=== PATIENT | female | born 1945 | race Caucasian/White ===

== ENCOUNTER → 2017-11-10 | Day surgery (SDC) | payer OTHER, BC ==
--- NOTE | 2017-11-11 10:59 | PATH ---
Surgical Pathology Report Patient Name: PRADEEP MARIN [facility]. Rec. #: [id number] /Age/Gender: 1945 (Age: 72) / F Account: [id number] Location: [facility] Taken: 11/10/2017 Received: 11/10/2017 Reported: 11/11/2017 Physicians: Ashely Moran M.D. Specimen(s) Received RIGHT BREAST CORE BIOPSY Clinical History Nonpalpable lesion Ultrasound findings: Highly suspicious/ malignant Retroareolar spiculated mass Final Diagnosis BREAST, RIGHT, SUB/RETRO, ULTRASOUND GUIDED CORE BIOPSY: INVASIVE DUCTAL CARCINOMA, MODERATELY DIFFERENTIATED, MEASURING ATLEAST 1.1 CM IN THIS MATERIAL. Comment: Breast prognostic markers are pending and will be signed out as an addendum. Electronically Signed Maria De Jesus Crenshaw M.D. Addendum Reported: 11/14/2017 Addendum Diagnosis Results of Estrogen Receptor (ER), Progesterone Receptor (WY), Her2 (IHC) & Ki-67 studies performed on block "1" at [facility] [place], [place] ([id number]) are as follows: ER (clone [id number] mouse monoclonal antibody by [employer]): 99% nuclear staining with strong intensity (Positive). WY (clone16 mouse monoclonal antibody by Leica): ~45% nuclear staining with weak to moderate intensity (Positive). Her2 IHC (EP3 from [employer], formerly known as [id number], using [employer] Polymer Refine detection kit): 2+ (Equivocal) Ki-67: ~20% (Intermediate proliferative Index) Her2 by FISH pending and will be reported separately. Positive and negative controls (internal if applicable) show appropriate results. Formalin fixation and cold ischemic times are within current ASCO/CAP recommendations for ER, WY and Her2 testing. Maria De Jesus Crenshaw M.D. Addendum Reported: 11/18/2017 Addendum Diagnosis Her2 Analysis by FISH performed and interpreted at [facility] ([id number]) shows the following: INTERPRETATION: Positive Her2: 8.4 CEP17: 1.9 Ratio: 4.4 See [facility]ge report for additional details ([id number]) Maria De Jesus Crenshaw M.D. Gross Description Received in formalin labeled "right sub-/retro," are 5 coello-yellow, cylindrical portions of fibroadipose tissue ranging from 0.6-1.3 cm in length and averaging 0.1 cm in diameter. The specimens are submitted in toto in one cassette. Total formalin fixation time: Between 6-10 hours 11/10/201711/10/2017
== END | disposition home or self-care (01) ==
LOC: JRADUS-SUR 07:59
PROVIDERS: ATTEND Surgery
PROC: 0HBT3ZX Excision of Right Breast, Percutaneous Approach, Diagnostic (ICD-10-PCS; principal; 2017-11-10)
DX: C50.911 Malignant neoplasm of unspecified site of right female breast (principal)
CPT/HCPCS: 19083; 77065-TC; 87899; 88305-TC; A4648

== ENCOUNTER 2017-12-27 09:30 | Day surgery (SDC) | payer OTHER, BC ==
--- NOTE | 2017-12-21 09:44 | HP ---
Admitting History and Physical - Primary Care Physician PCP: Horacio Bloom - Admission Chief Complaint: Right breast cancer History of Present Illness: 72 year old postmenapausal who had a CT showing lung nodules. Mammogram 2017 showed stable calcifications and left density. Pet CT 08/2017 showed suspicious findings in rectum and right middle lobe for which short term follow up was advised.Also noted was a right breast mass 18/13mm and 3.6 x2.9 cm mass in pelvis. She underwent pelvic mass excision which was benign 11/10/2017 She underwent US core biopsy right breast retroareolar region 1.5 cm. MRI breast left breast negative. right breast newly diagnosed right breast cancer and suspicious enhancement right 9 to 10:00. birad 4. . She is here for port placement. showing invasive ductal carcinoma History Source: Patient Limitations to Obtaining History: No Limitations - Past Medical History Cardiovascular: Yes: HTN, Hyperlipdemia Pulmonary: Yes: Asthma, Other (lung nodules followed by CT) - Past Surgical History Past Surgical History: Yes: Hysterectomy (benign CAMERON at 42 and complete 2018 benign), Joint Replacement (bilateral knee replacement left shattered with pins CTS), Tubal Ligation - Advance Directives Advance Directives: Yes: Health Care Proxy - Smoking History Smoking history: Former smoker Have you smoked in the past 12 months: No Aproximately how many cigarettes per day: 2 If you are a former smoker, when did you quit?: 30 Years ago - Alcohol/Substance Use Hx Alcohol Use: Yes (SOCIALLY) - Social History ADL: Independent History of Recent Travel: No Home Medications - Allergies Allergies/Adverse Reactions: Allergies Allergy/AdvReac Type Severity Reaction Status Date / Time erythromycin base Allergy Intermediate Difficulty Verified 11/04/15 08:41 Breathing - Home Medications Home Medications: Ambulatory Orders Paroxetine HCl [Paxil -] 10 mg PO DAILY 01/27/15 Cetirizine HCl [Zyrtec -] 10 mg PO DAILY 11/04/15 Glucosamine Sulfate Dipot Chlr [Glucosamine] 1,000 mg PO DAILY 11/04/15 Rosuvastatin Calcium [Crestor] 20 mg PO HS 11/04/15 Spironolact/Hydrochlorothiazid [Aldactazide 25-25 Tablet] 1 tab PO HS 11/04/15 Cholecalciferol (Vitamin D3) [Vitamin D3] 4,000 iu PO DAILY 12/20/17 Family Disease History - Family Disease History Family History: Denies Physical Examination Constitutional: Yes: Well Nourished Breast(s): Yes: Other (Left breast negative, right breast retroareolar region 3 cm firm mass and post bx changes no adenopathy) Problem List - Problems (1) Breast cancer, right Code(s): C50.911 - MALIGNANT NEOPLASM OF UNSP SITE OF RIGHT FEMALE BREAST Qualifiers: Breast location: combined nipple and areola Patient sex: female Assessment/Plan Life port insertion for chemotherapy
[2017-12-27] MEDS ORDERED: HEPARIN NA (PORCINE) 5,000 UNITS/ML 1ML VIAL ONE (10:05)
[2017-12-27] MEDS ORDERED: LIDOCAINE HCL 1%, 10 MG/ML (20ML VIAL) ONE (10:05)
[2017-12-27 10:24] VITALS: BMI 28.8
[2017-12-27] MEDS ORDERED: MIDAZOLAM HCL 2 MG/2 ML SINGLE DOSE VIAL ONE (11:43)
[2017-12-27] MEDS ORDERED: SUCCINYLCHOLINE CHLORIDE 200 MG/10 ML VIAL ONE (11:50)
[2017-12-27] MEDS ORDERED: PROPOFOL 20 ML ONE ×2 (11:50→12:34)
[2017-12-27] MEDS ORDERED: DEXAMETHASONE SOD PHOSPHATE 4 MG/1 ML VIAL ONE (11:55)
[2017-12-27] MEDS ORDERED: ONDANSETRON 4 MG/2 ML VIAL ONE (11:55)
[2017-12-27] MEDS ORDERED: ceFAZolin SODIUM 1 GM VIAL ONE (11:55)
[2017-12-27] MEDS ORDERED: ONDANSETRON 4 MG/2 ML VIAL IVPUSH PRN (12:51)
[2017-12-27] MEDS ORDERED: KETOROLAC TROMETHAMINE 30 MG/1 ML VIAL IVPUSH PRN (12:51)
[2017-12-27] MEDS ORDERED: DEXTROSE 5%-0.45% SALINE 1,000 ML IV SCH (13:00)
--- NOTE | 2017-12-27 14:05 | OP ---
DATE OF OPERATION: 12/27/2017 PREOPERATIVE DIAGNOSIS: Right breast cancer. POSTOPERATIVE DIAGNOSIS: Right breast cancer. PROCEDURE: Left subclavian single-lumen LifePort insertion. ANESTHESIA: IV sedation with local. ATTENDING: Horacio Bloom MD CANNERY TENDER ENGINEER: TRISTIAN Bell ESTIMATED BLOOD LOSS: Minimal. COMPLICATIONS: None. PROCEDURE: The patient was made aware of the risks and benefits of the procedure and consented. She was placed in the supine position on the operating room table and after IV sedation was administered, the operative site was prepped and draped in the usual sterile fashion. Lidocaine 1% was used for local anesthesia. Using the Seldinger technique, the left subclavian vein was easily localized and a wire was passed into the superior vena cava and found to be in good position by intraoperative fluoroscopy. Incisions were made over the puncture site and an additional larger incision was made inferior lateral to this area. Using electrocautery, an skin pocket was made in the larger incision. The catheter was then tunneled from the larger incision to the smaller incision and fashioned to the proper length, which was then attached to the port head. The port head was then placed into the skin pocket. The introducer and dilator were then placed over the wire into good position by intraoperative fluoroscopy. The dilator and wire were then removed and the catheter was placed into the introducer, which was then stripped away. The catheter was found to be in good position by intraoperative fluoroscopy. There was easy withdrawal of blood and infusion of dilute heparinized saline. Then 1 mL of concentrated heparinized saline was infused into the port head. The port head was then sutured to the deep tissues with 2-0 Prolene. The wound was copiously irrigated with normal saline, hemostasis maintained by electrocautery. The skin was then closed with deep 3-0 Vicryl followed by running subcuticular 4-0 Monocryl. Steri-Strip, sterile dressing were then applied and the patient, having tolerated the procedure well, was transferred to the recovery room and then her room, where a chest x-ray revealed good positioning of the catheter and no evidence of complications. Ashely [id number]
[2017-12-27 14:09] VITALS: BP 119/67; PULSE 59; TEMP 97.9
== END 2017-12-27 14:11 | disposition home or self-care (01) ==
LOC: FASU 09:30
PROVIDERS: ATTEND Surgery Surgical Oncology
PROC: B518ZZA Fluoroscopy of Superior Vena Cava, Guidance (ICD-10-PCS; 2017-12-27)
PROC: 02HV33Z Insertion of Infusion Device into Superior Vena Cava, Percutaneous Approach (ICD-10-PCS; principal; 2017-12-27 12:09)
DX: C50.911 Malignant neoplasm of unspecified site of right female breast (principal); I10 Essential (primary) hypertension; E78.5 Hyperlipidemia, unspecified; J45.909 Unspecified asthma, uncomplicated; R91.1 Solitary pulmonary nodule; Z90.710 Acquired absence of both cervix and uterus; Z96.653 Presence of artificial knee joint, bilateral
CPT/HCPCS: 71045-TC-FY; J1644

== ENCOUNTER 2017-12-29 12:11 | Day surgery (SDC) | payer OTHER, BC ==
[2017-12-29 12:06] LABS: BASO % 0.7 % (0-2.0); EOS % 3.1 % (0-4.5); HEMATOCRIT 46.1 % (32.4-45.2); HEMOGLOBIN 15.3 GM/dL (10.7-15.3); LYMPH % 41.4 % (8-40); MCH 28.2 pg (25.7-33.7); MCHC 33.3 g/dl (32.0-36.0); MEAN CELL VOLUME 84.8 fl (80-96); MEAN PLT VOLUME 8.6 fl (7.5-11.1); MONO % 7.5 % (3.8-10.2); NEUT % 47.3 % (42.8-82.8); PLATELET COUNT 220 K/MM3 (134-434); RBC 5.43 M/mm3 (3.60-5.2); RDW 13.9 % (11.6-15.6); WHITE BLOOD COUNT 8.4 K/mm3 (4.0-10.0)
[~2017-12-29 12:11] MED LIST: ACETAMINOPHEN 325 MG TABLET (FP) PO ONE; DEXTROSE 5%-0.45% SALINE 1,000 ML IV SCH; DIPHENHYDRAMINE IVPB ONE; KETOROLAC TROMETHAMINE 30 MG/1 ML VIAL IVPUSH PRN; ONDANSETRON 4 MG/2 ML VIAL IVPUSH PRN; ONDANSETRON IVPB ONE; PERTUZUMAB 840 MG in SODIUM CHLORIDE 250 ML IVPB ONE; RANITIDINE IVPB ONE; SODIUM CHLORIDE IVPB ONE; TRASTUZUMAB IVPB ONE; [UNRECOGNIZED DRUG - OTHER] IVPB ONE
[2017-12-29] MEDS ORDERED: PACLITAXEL 150 MG in SODIUM CHLORIDE 250 ML IVPB ONE (13:00)
[2017-12-29 13:06] LABS: ALK PHOS 63 U/L (45-117); ANION GAP 8 (8-16); BILIRUBIN,TOTAL 0.6 mg/dL (0.2-1.0); BLOOD UREA NITROGEN 24 mg/dL (7-18); CALCIUM 9.4 mg/dL (8.5-10.1); CHLORIDE 103 mmol/L (98-107); CO2 29 mmol/L (21-32); CREATININE 0.8 mg/dL (0.55-1.02); GLUCOSE,RANDOM 119 mg/dL (74-106); MAGNESIUM 2.1 mg/dL (1.8-2.4); POTASSIUM 3.8 mmol/L (3.5-5.1); SGOT/AST 14 U/L (15-37); SGPT/ALT 28 U/L (12-78); SODIUM 140 mmol/L (136-145); TOT PROT 7.5 g/dl (6.4-8.2)
[2017-12-29 13:33] LABS: BILIRUBIN,DIRECT 0.2 mg/dL (0.0-0.2)
[2017-12-29] MEDS ORDERED: BACITRACIN 15 GM TUBE TOPICAL OINTMENT TP ONE (15:00)
[2017-12-29] MEDS ORDERED: SODIUM CHLORIDE 250 ML IV SCH (15:00)
[2017-12-29] MEDS ORDERED: DEXAMETHASONE SOD PHOSPHATE 20 MG/5 ML VIAL IVPB ONE (15:00)
[2017-12-29] MEDS ORDERED: DEXAMETHASONE SOD PHOSPHATE 10 MG/1 ML VIAL ONE (17:00)
[2017-12-29] MEDS ORDERED: PORTA CATH FLUSH 10 ML IVPUSH ONE (18:00)
[2017-12-29 19:24] VITALS: BP 118/66; PULSE 73; TEMP 98.3
== END 2017-12-29 19:28 | disposition home or self-care (01) ==
LOC: J7W 12:11 → JONCCHEMO 12:11
PROVIDERS: ATTEND Internal Medicine Hematology & Oncology
DX: Z51.11 Encounter for antineoplastic chemotherapy (principal); C50.919 Malignant neoplasm of unspecified site of unspecified female breast
CPT/HCPCS: 36415; 80048; 80076; 83735; 85025; 96361; 96367; 96375; 96413; 96415; 96417; J1100; J7030; J9306; J9355

== ENCOUNTER 2018-01-09 07:47 | Day surgery (SDC) | payer OTHER, BC ==
[2018-01-09] MEDS ORDERED: RANITIDINE IVPB ONE (10:00)
[2018-01-09] MEDS ORDERED: [UNRECOGNIZED DRUG - OTHER] IVPB ONE (10:00)
[2018-01-09] MEDS ORDERED: DEXAMETHASONE IVPB ONE (10:00)
[2018-01-09] MEDS ORDERED: ONDANSETRON IVPB ONE (10:00)
[2018-01-09] MEDS ORDERED: PACLITAXEL 150 MG in SODIUM CHLORIDE 250 ML IVPB ONE (10:30)
[2018-01-09 12:53] LABS: BASO % 0.8 % (0-2.0); EOS % 1.6 % (0-4.5); HEMATOCRIT 43.2 % (32.4-45.2); HEMOGLOBIN 14.5 GM/dL (10.7-15.3); LYMPH % 31.3 % (8-40); MCH 28.2 pg (25.7-33.7); MCHC 33.5 g/dl (32.0-36.0); MEAN CELL VOLUME 84.2 fl (80-96); MEAN PLT VOLUME 8.1 fl (7.5-11.1); MONO % 7.7 % (3.8-10.2); NEUT % 58.6 % (42.8-82.8); PLATELET COUNT 288 K/MM3 (134-434); RBC 5.13 M/mm3 (3.60-5.2); RDW 14.1 % (11.6-15.6); WHITE BLOOD COUNT 5.5 K/mm3 (4.0-10.0)
[2018-01-09 13:24] LABS: ALBUMIN 3.8 g/dl (3.4-5.0); ANION GAP 6 (8-16); BILIRUBIN,DIRECT < 0.2 mg/dL (0.0-0.2); BILIRUBIN,TOTAL 0.5 mg/dL (0.2-1.0); BLOOD UREA NITROGEN 18 mg/dL (7-18); CALCIUM 9.2 mg/dL (8.5-10.1); CHLORIDE 107 mmol/L (98-107); CO2 28 mmol/L (21-32); CREATININE 0.8 mg/dL (0.55-1.02); GLUCOSE,RANDOM 93 mg/dL (74-106); POTASSIUM 4.3 mmol/L (3.5-5.1); SGOT/AST 14 U/L (15-37); SGPT/ALT 24 U/L (12-78); SODIUM 141 mmol/L (136-145); TOT PROT 6.9 g/dl (6.4-8.2)
[2018-01-09 13:25] LABS: ALK PHOS 65 U/L (45-117)
[2018-01-09 16:22] VITALS: TEMP 97.9
[2018-01-09] MEDS ORDERED: PORTA CATH FLUSH 10 ML IVPUSH ONE (16:25)
[2018-01-09 18:05] VITALS: BP 123/70; PULSE 67
== END 2018-01-09 18:19 | disposition home or self-care (01) ==
LOC: JONCCHEMO 07:47 → J7W 13:29 → JONCCHEMO 18:19
PROVIDERS: ATTEND Internal Medicine Hematology & Oncology
DX: Z51.11 Encounter for antineoplastic chemotherapy (principal); C50.919 Malignant neoplasm of unspecified site of unspecified female breast
CPT/HCPCS: 36415; 36598; 76000-TC-FY; 80053; 80076; 85025; 96367; 96375; 96413; J1100

== ENCOUNTER 2018-01-17 07:39 | Day surgery (SDC) | payer OTHER, BC ==
[2018-01-17] MEDS ORDERED: SODIUM CHLORIDE 1,000 ML IV SCH ×2 (09:00→14:05)
[2018-01-17] MEDS ORDERED: DEXAMETHASONE IVPB ONE (10:00)
[2018-01-17] MEDS ORDERED: RANITIDINE IVPB ONE (10:00)
[2018-01-17] MEDS ORDERED: [UNRECOGNIZED DRUG - OTHER] IVPB ONE (10:00)
[2018-01-17] MEDS ORDERED: ONDANSETRON IVPB ONE (10:00)
[2018-01-17] MEDS ORDERED: PACLITAXEL 150 MG in SODIUM CHLORIDE 250 ML IVPB ONE (10:30)
[2018-01-17 11:35] LABS: BASO % 0.7 % (0-2.0); EOS % 0.8 % (0-4.5); HEMATOCRIT 42.3 % (32.4-45.2); HEMOGLOBIN 14.1 GM/dL (10.7-15.3); LYMPH % 36.9 % (8-40); MCH 28.2 pg (25.7-33.7); MCHC 33.4 g/dl (32.0-36.0); MEAN CELL VOLUME 84.4 fl (80-96); MEAN PLT VOLUME 8.2 fl (7.5-11.1); MONO % 4.9 % (3.8-10.2); NEUT % 56.7 % (42.8-82.8); PLATELET COUNT 310 K/MM3 (134-434); RBC 5.01 M/mm3 (3.60-5.2); WHITE BLOOD COUNT 5.1 K/mm3 (4.0-10.0)
[2018-01-17 11:59] LABS: ALBUMIN 3.6 g/dl (3.4-5.0); ANION GAP 8 (8-16); BILIRUBIN,DIRECT < 0.2 mg/dL (0.0-0.2); BLOOD UREA NITROGEN 18 mg/dL (7-18); CALCIUM 9.3 mg/dL (8.5-10.1); CHLORIDE 104 mmol/L (98-107); CO2 27 mmol/L (21-32); CREATININE 0.7 mg/dL (0.55-1.02); GLUCOSE,RANDOM 100 mg/dL (74-106); MAGNESIUM 2.2 mg/dL (1.8-2.4); POTASSIUM 4.4 mmol/L (3.5-5.1); SGOT/AST 13 U/L (15-37); SGPT/ALT 26 U/L (12-78); SODIUM 139 mmol/L (136-145)
[2018-01-17 12:01] LABS: ALK PHOS 64 U/L (45-117); BILIRUBIN,TOTAL 0.4 mg/dL (0.2-1.0); TOT PROT 6.8 g/dl (6.4-8.2)
[2018-01-17] MEDS ORDERED: ALTEPLASE 2 MG VIAL CVP ONE (13:45)
[2018-01-17] MEDS ORDERED: SODIUM CHLORIDE 250 ML IV SCH ×2 (14:05→14:31)
[2018-01-17 18:26] VITALS: TEMP 98.4
[2018-01-17 18:30] VITALS: BP 127/67; PULSE 56
[2018-01-17] MEDS ORDERED: PORTA CATH FLUSH 10 ML IVPUSH ONE (18:30)
== END 2018-01-17 18:34 | disposition home or self-care (01) ==
LOC: JONCCHEMO 07:39 → J7W 12:52 → JONCCHEMO 18:00
PROVIDERS: ATTEND Internal Medicine Hematology & Oncology
DX: Z51.11 Encounter for antineoplastic chemotherapy (principal); C50.919 Malignant neoplasm of unspecified site of unspecified female breast
CPT/HCPCS: 36415; 80053; 80076; 83735; 85025; 96361; 96367; 96375; 96413; J1100; J2997; J7030

== ENCOUNTER 2018-02-07 07:31 | Day surgery (SDC) | payer OTHER, BC ==
--- NOTE | 2018-01-24 10:40 | CON.CARD ---
Consult Consult Specialty:: Cardiology Referred by:: Dr. Hoang Reason for Consultation:: Syncope - History of Present Illness Chief Complaint: Syncope History of Present Illness: 72 year old woman with pmh HTN, hysterectomy, tubal ligation, h/o hypotension episodes and syncope in the past in the setting of medications and nausea, Breast Ca currently receiving chemo, admitted with a syncopal episode and abdominal discomfort. Pt was seen and examined today in [facility]. Pt ambulatory around room to and from bathroom without symptoms. states she is feeling better and wants to go home. Pt states that the day after receiving her last chemo she was feeling very tired and weak. she states she got up from bed to go to the bathroom and felt diaphoretic and felt like she was going to lose consciousness so she sat down on the floor and she did lose consciousness. states she woke up soon after and felt better but still weak and tired and she went to lay down. She also notes abdominal discomfort for the past several days. In the past had episodes of syncope in the setting of nausea and abd discomfort. Denies any chest pain, palpitations, sob, pnd, orthopnea, or LE edema. States she drinks several large bottles of water per day to stay hydrated. ECHO 12/09/17-Normal LV/RV size and function, LV impaired relaxation, mild tr, mild ar, no pericardial effusion, mild to mod aortic sclerosis. - History Source History Provided By: Patient Limitations to Obtaining History: No Limitations - Past Medical History Cardio/Vascular: Yes: HTN Pulmonary: Yes: Asthma, Other (lung nodules followed by CT) Heme/Onc: Yes: Cancer - Past Surgical History Past Surgical History: Yes: Hysterectomy, Tubal Ligation - Alcohol/Substance Use Hx Alcohol Use: Yes (SOCIALLY) - Smoking History Smoking history: Former smoker Have you smoked in the past 12 months: No Aproximately how many cigarettes per day: 2 If you are a former smoker, when did you quit?: 30 Years ago - Social History ADL: Independent History of Recent Travel: No Home Medications - Allergies Allergies/Adverse Reactions: Allergies Allergy/AdvReac Type Severity Reaction Status Date / Time erythromycin base Allergy Intermediate Difficulty Verified 01/23/18 11:01 Breathing - Home Medications Home Medications: Ambulatory Orders Paroxetine HCl [Paxil -] 10 mg PO DAILY 01/27/15 Cetirizine HCl [Zyrtec -] 10 mg PO DAILY 11/04/15 Glucosamine Sulfate Dipot Chlr [Glucosamine] 1,000 mg PO DAILY 11/04/15 Rosuvastatin Calcium [Crestor] 20 mg PO HS 11/04/15 Spironolact/Hydrochlorothiazid [Aldactazide 25-25 Tablet] 1 tab PO HS 11/04/15 Cholecalciferol (Vitamin D3) [Vitamin D3] 4,000 iu PO DAILY 12/20/17 Acetaminophen [Tylenol] 325 mg PO TID PRN #30 tablet 12/27/17 Acetaminophen [Tylenol] 650 mg PO TID PRN #30 tablet 12/27/17 Fluticasone/Salmeterol [Advair 250-50 Diskus] 1 each IH DAILY PRN 12/27/17 Family Disease History - Family Disease History Family History: Denies Review of Systems - Review of Systems Constitutional: reports: Diaphoresis, Malaise, Weakness. denies: No Symptoms, Chills, Fever, Lethargy, Loss of Appetite, Night Sweats, Unintentional Wgt. Loss , Other Eyes: denies: No Symptoms, Blind Spots, Blurred Vision, Double Vision, Eye Pain , Floaters, Photophobia, Recent Change in Vision, Other HENT: denies: No Symptoms, Difficult Swallowing, Ear Discharge, Ear Pain, Epistaxis, Gingival Bleeding, Hearing Loss, Mouth Swelling, Nasal Congestion, Ocular Prosthesis, Throat Pain, Toothache, Ringing in Ears, Other Neck: denies: No Symptoms, Decreased ROM, Lumps, Pain on Movement, Stiffness, Swollen Glands, Tenderness, Other Cardiovascular: denies: No Symptoms, Chest Pain, Edema, Palpitations, Shortness of Breath, Other Respiratory: denies: No Symptoms, Cough, Exercise Intolerance, Hemoptysis, Orthopnea, PND, Snoring, SOB, SOB on Exertion, Wheezing, Other Gastrointestinal: reports: Abdominal Pain, Bloating, Nausea. denies: No Symptoms, Constipation, Diarrhea, Dysphagia, Indigestion, Melena, Rectal Bleeding, Vomiting, Vomiting Blood, Other Genitourinary: denies: No Symptoms, Burning, Discharge, Dysuria, Flank Pain, Frequency, Hematuria, Incontinence, Lesions, Menses, Pain, Testicular Mass, Testicular Pain, Testicular Swelling, Urgency, Vaginal Bleeding, Other Breasts: denies: No Symptoms Reported, See HPI, Breast Implants, Discharge from Nipple, Lumps, Pain, Skin Changes, Other Musculoskeletal: denies: No Symptoms, Back Pain, Crepitus, Decreased ROM, Extremity Pain, Joint Pain, Joint Swelling, Muscle Pain, Muscle Cramps, Muscle Weakness, Other Integumentary: denies: No Symptoms, Blister, Bruising, Change in Color, Eczema, Erythema, Incision, Lesions, Lump, Pallor, Pruritis, Rash, Wound, Other Neurological: reports: Dizziness, Syncope. denies: No Symptoms, Change in LOC, Change in Speech, Confusion, Headache, Incoordination, Numbness, Parasthesia, Pre-Existing Deficit, Seizure, Tremors, Unsteady Gait, Weakness, Other Endocrine: denies: No Symptoms, Excessive Sweating, Flushing, Increased Hunger, Increased Thirst, Intolerance to Cold, Intolerance to Heat, Unexplained Weight Gain, Unexplained Weight Loss, Other Hematology/Lymphatic: denies: No Symptoms, Easily Bruised, Excessive Bleeding, Swollen Glands, Other Psychiatric: denies: No Symptoms, Altered Sleep Pattern, Anxiety, Depression, Hallucinations, Panic, Paranoia, Suicidal, Other - Risk Factors Known Risk Factors: Yes: Hypertension Constitutional: Yes: Well Nourished, No Distress, Calm Eyes: Yes: WNL, Conjunctiva Clear, EOM Intact HENT: Yes: WNL, Atraumatic, Normocephalic Neck: Yes: WNL, Supple, Trachea Midline Respiratory: Yes: WNL, Regular, CTA Bilaterally. No: Rales, Rhonchi, SOB, Wheezes Gastrointestinal: Yes: Normal Bowel Sounds, Tenderness. No: Distention Cardiovascular: Yes: WNL, Regular Rate and Rhythm. No: Bradycardia, Tachycardia , Pulse Irregular, Gallop, Rub, Varicosities JVD: No Carotid Bruit: No PMI: Non-Displaced Heart Sounds: Yes: S1, S2. No: Split S2, S3, S4, Clicks, Gallop, Rub, Bruit Murmur: No: Systolic Murmur, Diastolic Murmur Musculoskeletal: Yes: WNL Extremities: Yes: WNL Edema: No Peripheral Pulses WNL: Yes Peripheral Pulses: 2+ Left Doralis Pedis, 2+ Right Dorsalis Pedis Integumentary: Yes: WNL Neurological: Yes: WNL, Alert, Oriented ...Motor Strength: WNL Psychiatric: Yes: WNL, Alert, Oriented Assessment/Plan 72 year old woman with pmh HTN, hysterectomy, tubal ligation, h/o hypotension episodes and syncope in the past in the setting of medications and nausea, Breast Ca currently receiving chemo, admitted with a syncopal episode and abdominal discomfort. Pt was seen and examined today in [facility]. Pt ambulatory around room to and from bathroom without symptoms. states she is feeling better and wants to go home. Pt states that the day after receiving her last chemo she was feeling very tired and weak. she states she got up from bed to go to the bathroom and felt diaphoretic and felt like she was going to lose consciousness so she sat down on the floor and she did lose consciousness. states she woke up soon after and felt better but still weak and tired and she went to lay down. She also notes abdominal discomfort for the past several days. In the past had episodes of syncope in the setting of nausea and abd discomfort. Denies any chest pain, palpitations, sob, pnd, orthopnea, or LE edema. States she drinks several large bottles of water per day to stay hydrated. ECHO 12/09/17-Normal LV/RV size and function, LV impaired relaxation, mild tr, mild ar, no pericardial effusion, mild to mod aortic sclerosis.
[~2018-02-07 07:31] MED LIST changes: +DEXAMETHASONE IVPB ONE; -DEXTROSE 5%-0.45% SALINE 1,000 ML IV SCH; -KETOROLAC TROMETHAMINE 30 MG/1 ML VIAL IVPUSH PRN; -ONDANSETRON 4 MG/2 ML VIAL IVPUSH PRN; +PACLITAXEL 150 MG in SODIUM CHLORIDE 250 ML IVPB ONE; +PERTUZUMAB 420 MG in SODIUM CHLORIDE 250 ML IVPB ONE; -PERTUZUMAB 840 MG in SODIUM CHLORIDE 250 ML IVPB ONE; -RANITIDINE IVPB ONE; +[UNRECOGNIZED DRUG - OTHER] IVPB ONE; -[UNRECOGNIZED DRUG - OTHER] IVPB ONE
[2018-02-07] MEDS ORDERED: ACETAMINOPHEN 325 MG TABLET (FP) PO ONE (08:00)
[2018-02-07] MEDS ORDERED: [UNRECOGNIZED DRUG - OTHER] IVPB ONE (08:00)
[2018-02-07] MEDS ORDERED: DIPHENHYDRAMINE IVPB ONE (08:00)
[2018-02-07] MEDS ORDERED: DEXAMETHASONE IVPB ONE (08:00)
[2018-02-07] MEDS ORDERED: ONDANSETRON IVPB ONE (08:00)
[2018-02-07] MEDS ORDERED: SODIUM CHLORIDE IVPB ONE (08:30)
[2018-02-07] MEDS ORDERED: TRASTUZUMAB IVPB ONE (08:30)
[2018-02-07] MEDS ORDERED: PACLITAXEL 150 MG in SODIUM CHLORIDE 250 ML IVPB ONE (09:00)
[2018-02-07 10:52] LABS: BASO % 0.8 % (0-2.0); EOS % 1.3 % (0-4.5); HEMATOCRIT 39.2 % (32.4-45.2); HEMOGLOBIN 13.1 GM/dL (10.7-15.3); MCH 28.1 pg (25.7-33.7); MCHC 33.3 g/dl (32.0-36.0); MEAN CELL VOLUME 84.4 fl (80-96); MEAN PLT VOLUME 8.4 fl (7.5-11.1); MONO % 6.8 % (3.8-10.2); NEUT % 60.1 % (42.8-82.8); PLATELET COUNT 264 K/MM3 (134-434); RBC 4.64 M/mm3 (3.60-5.2); RDW 14.5 % (11.6-15.6); WHITE BLOOD COUNT 6.6 K/mm3 (4.0-10.0)
[2018-02-07 11:17] LABS: ALBUMIN 3.7 g/dl (3.4-5.0); ANION GAP 7 (8-16); BILIRUBIN,DIRECT 0.2 mg/dL (0.0-0.2); BLOOD UREA NITROGEN 15 mg/dL (7-18); CALCIUM 9.5 mg/dL (8.5-10.1); CHLORIDE 109 mmol/L (98-107); CO2 27 mmol/L (21-32); CREATININE 0.8 mg/dL (0.55-1.02); GLUCOSE,RANDOM 105 mg/dL (74-106); POTASSIUM 4.2 mmol/L (3.5-5.1); SGOT/AST 11 U/L (15-37); SGPT/ALT 22 U/L (12-78); SODIUM 143 mmol/L (136-145)
[2018-02-07 11:18] LABS: ALK PHOS 71 U/L (45-117); BILIRUBIN,TOTAL 0.6 mg/dL (0.2-1.0); TOT PROT 6.5 g/dl (6.4-8.2)
[2018-02-07] MEDS ORDERED: SODIUM CHLORIDE 250 ML IV SCH (12:15)
[2018-02-07 16:37] VITALS: TEMP 97.7
[2018-02-07 16:42] VITALS: BP 140/68; PULSE 61
== END 2018-02-07 16:00 | disposition home or self-care (01) ==
LOC: JONCCHEMO 07:31 → J7W 12:30 → JONCCHEMO 16:00
PROVIDERS: ATTEND Internal Medicine Hematology & Oncology
DX: Z51.11 Encounter for antineoplastic chemotherapy (principal); C50.919 Malignant neoplasm of unspecified site of unspecified female breast
CPT/HCPCS: 36415; 80053; 80076; 85025; 96361; 96367; 96375; 96413; 96417; J1100; J2405; J7030; J9355

== ENCOUNTER 2018-03-07 07:39 | Day surgery (SDC) | payer OTHER, BC ==
[2018-03-07 09:51] LABS: BASO % 0.9 % (0-2.0); EOS % 1.3 % (0-4.5); HEMATOCRIT 34.7 % (32.4-45.2); HEMOGLOBIN 11.6 GM/dL (10.7-15.3); MCH 28.3 pg (25.7-33.7); MCHC 33.5 g/dl (32.0-36.0); MEAN CELL VOLUME 84.5 fl (80-96); MONO % 4.3 % (3.8-10.2); NEUT % 59.5 % (42.8-82.8); PLATELET COUNT 317 K/MM3 (134-434); RBC 4.11 M/mm3 (3.60-5.2); RDW 14.9 % (11.6-15.6); WHITE BLOOD COUNT 4.2 K/mm3 (4.0-10.0)
[2018-03-07] MEDS ORDERED: DEXAMETHASONE INJECTION 10 MG, DIPHENHYDRAMINE 50 MG, RANITIDINE INJECTION 50 MG in SOD... IVPB ONE (10:00)
[2018-03-07] MEDS ORDERED: SODIUM CHLORIDE 500 ML IV ONE (10:00)
[2018-03-07 10:13] LABS: ALBUMIN 3.6 g/dl (3.4-5.0); ANION GAP 9 (8-16); BILIRUBIN,DIRECT < 0.2 mg/dL (0.0-0.2); BILIRUBIN,TOTAL 0.6 mg/dL (0.2-1.0); BLOOD UREA NITROGEN 16 mg/dL (7-18); CALCIUM 8.8 mg/dL (8.5-10.1); CHLORIDE 111 mmol/L (98-107); CO2 24 mmol/L (21-32); CREATININE 0.6 mg/dL (0.55-1.02); GLUCOSE,RANDOM 111 mg/dL (74-106); MAGNESIUM 1.9 mg/dL (1.8-2.4); POTASSIUM 3.8 mmol/L (3.5-5.1); SGOT/AST 35 U/L (15-37); SGPT/ALT 78 U/L (12-78); SODIUM 144 mmol/L (136-145); TOT PROT 6.5 g/dl (6.4-8.2)
[2018-03-07 10:14] LABS: ALK PHOS 72 U/L (45-117)
[2018-03-07] MEDS ORDERED: PACLITAXEL 150 MG in SODIUM CHLORIDE 250 ML IVPB ONE (10:30)
[2018-03-07] MEDS ORDERED: DEXAMETHASONE SOD PHOSPHATE 10 MG/1 ML VIAL IVPB ONE (10:59)
[2018-03-07] MEDS ORDERED: ONDANSETRON 4 MG/2 ML VIAL IVPB ONE (11:28)
[2018-03-07 18:37] VITALS: TEMP 99
[2018-03-07] MEDS ORDERED: PORTA CATH FLUSH 10 ML IVPUSH ONE (18:44)
[2018-03-07 18:45] VITALS: BP 133/70; PULSE 92
== END 2018-03-07 15:35 | disposition home or self-care (01) ==
LOC: JONCCHEMO 07:39 → J7W 11:15 → JONCCHEMO 15:35
PROVIDERS: ATTEND Internal Medicine Hematology & Oncology
PROC: 3E04305 Introduction of Other Antineoplastic into Central Vein, Percutaneous Approach (ICD-10-PCS; principal; 2018-03-07)
PROC: 3E043GC Introduction of Other Therapeutic Substance into Central Vein, Percutaneous Approach (ICD-10-PCS; 2018-03-07)
PROC: 3E0437Z Introduction of Electrolytic and Water Balance Substance into Central Vein, Percutaneous Approach (ICD-10-PCS; 2018-03-07)
DX: Z51.11 Encounter for antineoplastic chemotherapy (principal); C50.019 Malignant neoplasm of nipple and areola, unspecified female breast; I10 Essential (primary) hypertension; E78.00 Pure hypercholesterolemia, unspecified; F41.9 Anxiety disorder, unspecified; J45.909 Unspecified asthma, uncomplicated; M19.90 Unspecified osteoarthritis, unspecified site; R91.8 Other nonspecific abnormal finding of lung field
CPT/HCPCS: 36415; 80048; 80076; 83735; 85025; 96361; 96367; 96375; 96413; J1100

== ENCOUNTER 2018-03-14 07:45 | Day surgery (SDC) | payer OTHER, BC ==
[2018-03-14] MEDS ORDERED: DEXAMETHASONE INJECTION 10 MG, RANITIDINE INJECTION 50 MG, DIPHENHYDRAMINE 50 MG in SOD... IVPB ONE (10:00)
[2018-03-14] MEDS ORDERED: SODIUM CHLORIDE 500 ML IV ONE (10:00)
[2018-03-14 10:36] LABS: BASO % 0.7 % (0-2.0); EOS % 1.1 % (0-4.5); HEMATOCRIT 34.2 % (32.4-45.2); HEMOGLOBIN 11.6 GM/dL (10.7-15.3); LYMPH % 38.4 % (8-40); MCH 29.1 pg (25.7-33.7); MEAN CELL VOLUME 85.6 fl (80-96); MEAN PLT VOLUME 7.9 fl (7.5-11.1); MONO % 4.8 % (3.8-10.2); PLATELET COUNT 360 K/MM3 (134-434); RBC 3.99 M/mm3 (3.60-5.2); RDW 15.8 % (11.6-15.6)
[2018-03-14 11:02] LABS: ALBUMIN 3.7 g/dl (3.4-5.0); ANION GAP 6 MMOL/L (8-16); BILIRUBIN,DIRECT < 0.2 mg/dL (0.0-0.2); BLOOD UREA NITROGEN 16 mg/dL (7-18); CHLORIDE 107 mmol/L (98-107); CO2 28 mmol/L (21-32); CREATININE 0.8 mg/dL (0.55-1.02); GLUCOSE,RANDOM 121 mg/dL (74-106); MAGNESIUM 2.2 mg/dL (1.8-2.4); POTASSIUM 3.7 mmol/L (3.5-5.1); SGOT/AST 18 U/L (15-37); SGPT/ALT 38 U/L (12-78); SGPT/ALT 40 U/L (12-78); SODIUM 141 mmol/L (136-145)
[2018-03-14 11:04] LABS: ALK PHOS 74 U/L (45-117); BILIRUBIN,TOTAL 0.4 mg/dL (0.2-1.0); TOT PROT 6.4 g/dl (6.4-8.2)
[2018-03-14 11:05] LABS: ALK PHOS 74 U/L (45-117); BILIRUBIN,TOTAL 0.4 mg/dL (0.2-1.0); TOT PROT 6.4 g/dl (6.4-8.2)
[2018-03-14] MEDS ORDERED: DEXAMETHASONE SOD PHOSPHATE 10 MG/1 ML VIAL IVPB ONE ×2 (12:05→14:15)
[2018-03-14] MEDS ORDERED: ONDANSETRON 4 MG/2 ML VIAL IVPB ONE (12:06)
[2018-03-14] MEDS: PACLITAXEL 150 MG in SODIUM CHLORIDE 250 ML IVPB ONE ×2 (13:56→14:26)
[2018-03-14 16:43] VITALS: BP 129/65; PULSE 66; TEMP 97.8
== END 2018-03-14 17:02 | disposition home or self-care (01) ==
LOC: JONCCHEMO 07:45 → J7W 13:24 → JONCCHEMO 17:02
PROVIDERS: ATTEND Internal Medicine Hematology & Oncology
DX: Z51.11 Encounter for antineoplastic chemotherapy (principal); C50.019 Malignant neoplasm of nipple and areola, unspecified female breast
CPT/HCPCS: 36415; 77080-TC-FY; 80053; 80076; 83735; 85025; 93306-TC; 96361; 96367; 96375; 96413; J1100

== ENCOUNTER 2018-03-22 07:41 | Day surgery (SDC) | payer OTHER, BC ==
[2018-03-22] MEDS ORDERED: DEXAMETHASONE INJECTION 10 MG, DIPHENHYDRAMINE 50 MG, RANITIDINE INJECTION 50 MG in SOD... IVPB ONE (08:00)
[2018-03-22] MEDS ORDERED: ACETAMINOPHEN 325 MG TABLET (FP) PO ONE (08:00)
[2018-03-22] MEDS ORDERED: SODIUM CHLORIDE IVPB ONE (08:30)
[2018-03-22] MEDS ORDERED: TRASTUZUMAB IVPB ONE (08:30)
[2018-03-22] MEDS ORDERED: PACLITAXEL 150 MG in SODIUM CHLORIDE 250 ML IVPB ONE (09:00)
[2018-03-22 09:21] LABS: BASO % 0.6 % (0-2.0); EOS % 1.3 % (0-4.5); HEMATOCRIT 32.3 % (32.4-45.2); LYMPH % 33.9 % (8-40); MCH 29.4 pg (25.7-33.7); MCHC 34.1 g/dl (32.0-36.0); MEAN CELL VOLUME 86.3 fl (80-96); MEAN PLT VOLUME 7.8 fl (7.5-11.1); MONO % 6.6 % (3.8-10.2); NEUT % 57.6 % (42.8-82.8); PLATELET COUNT 286 K/MM3 (134-434); RBC 3.75 M/mm3 (3.60-5.2); WHITE BLOOD COUNT 4.3 K/mm3 (4.0-10.0)
[2018-03-22 09:45] LABS: ALBUMIN 3.6 g/dl (3.4-5.0); ANION GAP 9 MMOL/L (8-16); BLOOD UREA NITROGEN 22 mg/dL (7-18); CALCIUM 8.8 mg/dL (8.5-10.1); CHLORIDE 112 mmol/L (98-107); CO2 23 mmol/L (21-32); CREATININE 0.8 mg/dL (0.55-1.02); GLUCOSE,RANDOM 128 mg/dL (74-106); POTASSIUM 3.9 mmol/L (3.5-5.1); SGOT/AST 11 U/L (15-37); SGPT/ALT 29 U/L (12-78); SODIUM 144 mmol/L (136-145)
[2018-03-22 09:46] LABS: ALK PHOS 70 U/L (45-117); BILIRUBIN,TOTAL 0.5 mg/dL (0.2-1.0); TOT PROT 6.2 g/dl (6.4-8.2)
[2018-03-22 09:48] LABS: ALK PHOS 71 U/L (45-117); BILIRUBIN,DIRECT < 0.2 mg/dL (0.0-0.2); BILIRUBIN,TOTAL 0.4 mg/dL (0.2-1.0); SGOT/AST 13 U/L (15-37); SGPT/ALT 28 U/L (12-78); TOT PROT 6.2 g/dl (6.4-8.2)
[2018-03-22] MEDS ORDERED: SODIUM CHLORIDE 500 ML IV ONE (10:00)
[2018-03-22] MEDS ORDERED: DEXAMETHASONE SOD PHOSPHATE 10 MG/1 ML VIAL IVPB ONE (11:15)
[2018-03-22] MEDS ORDERED: ALTEPLASE 2 MG VIAL CVP ONE (12:00)
[2018-03-22 12:23] LABS: ACANTHOCYTES 0; ANISOCYTOSIS 0; HELMET CELLS 0; HOWELL-JOLLY BODIES 0; MACROCYTOSIS 0; OVALOCYTE 0; PLATELET ESTIMATE NORMAL; ROULEAU 0; SICKELED CELLS 0; TARGET CELLS 0; TEAR DROP CELLS 0; TOXIC GRANULATION 0
[2018-03-22 15:04] VITALS: TEMP 97.9
[2018-03-22] MEDS ORDERED: PORTA CATH FLUSH 10 ML IVPUSH ONE (16:29)
[2018-03-22 17:01] VITALS: BP 146/60; PULSE 68
== END 2018-03-22 15:00 | disposition home or self-care (01) ==
LOC: JONCCHEMO 07:41 → J7W 10:38 → JONCCHEMO 15:00
PROVIDERS: ATTEND Internal Medicine Hematology & Oncology
PROC: 3E04305 Introduction of Other Antineoplastic into Central Vein, Percutaneous Approach (ICD-10-PCS; principal; 2018-03-22)
PROC: 3E043GC Introduction of Other Therapeutic Substance into Central Vein, Percutaneous Approach (ICD-10-PCS; 2018-03-22)
PROC: 3E0437Z Introduction of Electrolytic and Water Balance Substance into Central Vein, Percutaneous Approach (ICD-10-PCS; 2018-03-22)
DX: Z51.11 Encounter for antineoplastic chemotherapy (principal); C50.919 Malignant neoplasm of unspecified site of unspecified female breast; I10 Essential (primary) hypertension
CPT/HCPCS: 36415; 80053; 80076; 83735; 85025; 96361; 96367; 96375; 96413; 96417; J1100; J2997; J9355

== ENCOUNTER 2018-03-29 07:42 | Day surgery (SDC) | payer OTHER, BC ==
[2018-03-29] MEDS ORDERED: DEXAMETHASONE INJECTION 10 MG, DIPHENHYDRAMINE 50 MG, RANITIDINE INJECTION 50 MG in SOD... IVPB ONE (08:00)
[2018-03-29] MEDS ORDERED: PACLITAXEL 150 MG in SODIUM CHLORIDE 250 ML IVPB ONE (08:30)
[2018-03-29] MEDS ORDERED: SODIUM CHLORIDE 500 ML IV ONE (09:30)
[2018-03-29 10:04] LABS: BASO % 0.9 % (0-2.0); HEMATOCRIT 32.8 % (32.4-45.2); HEMOGLOBIN 11.2 GM/dL (10.7-15.3); LYMPH % 38.5 % (8-40); MCH 29.4 pg (25.7-33.7); MCHC 34.2 g/dl (32.0-36.0); MEAN CELL VOLUME 85.9 fl (80-96); MEAN PLT VOLUME 7.9 fl (7.5-11.1); MONO % 5.1 % (3.8-10.2); NEUT % 53.5 % (42.8-82.8); PLATELET COUNT 290 K/MM3 (134-434); RBC 3.82 M/mm3 (3.60-5.2); RDW 16.4 % (11.6-15.6); WHITE BLOOD COUNT 4.5 K/mm3 (4.0-10.0)
[2018-03-29 10:28] LABS: ALBUMIN 3.6 g/dl (3.4-5.0); ALK PHOS 69 U/L (45-117); ANION GAP 10 MMOL/L (8-16); BILIRUBIN,DIRECT < 0.2 mg/dL (0.0-0.2); BILIRUBIN,TOTAL 0.7 mg/dL (0.2-1.0); BLOOD UREA NITROGEN 17 mg/dL (7-18); CALCIUM 8.7 mg/dL (8.5-10.1); CHLORIDE 107 mmol/L (98-107); CO2 22 mmol/L (21-32); CREATININE 0.9 mg/dL (0.55-1.02); GLUCOSE,RANDOM 107 mg/dL (74-106); MAGNESIUM 2.3 mg/dL (1.8-2.4); POTASSIUM 4.1 mmol/L (3.5-5.1); SGOT/AST 15 U/L (15-37); SGOT/AST 17 U/L (15-37); SGPT/ALT 41 U/L (12-78); SGPT/ALT 42 U/L (12-78); SODIUM 139 mmol/L (136-145); TOT PROT 6.1 g/dl (6.4-8.2)
[2018-03-29 10:30] LABS: ALK PHOS 70 U/L (45-117); TOT PROT 6.3 g/dl (6.4-8.2)
[2018-03-29] MEDS ORDERED: SODIUM CHLORIDE 500 ML IV STA (11:16)
[2018-03-29] MEDS ORDERED: DEXAMETHASONE SOD PHOSPHATE 10 MG/1 ML VIAL IVPB ONE (11:30)
[2018-03-29 11:43] LABS: ACANTHOCYTES 0; ANISOCYTOSIS 0; HELMET CELLS 0; HOWELL-JOLLY BODIES 0; MACROCYTOSIS 0; OVALOCYTE 0; PLATELET ESTIMATE NORMAL; ROULEAU 0; SICKELED CELLS 0; TARGET CELLS 0; TEAR DROP CELLS 0; TOXIC GRANULATION 0
[2018-03-29 16:31] VITALS: TEMP 97.9
[2018-03-29 16:49] VITALS: BP 126/71; PULSE 82
== END 2018-03-29 15:00 | disposition home or self-care (01) ==
LOC: JONCCHEMO 07:42 → J7W 11:23 → JONCCHEMO 15:00
PROVIDERS: ATTEND Internal Medicine Hematology & Oncology
PROC: 3E033GC Introduction of Other Therapeutic Substance into Peripheral Vein, Percutaneous Approach (ICD-10-PCS; principal; 2018-03-29)
PROC: 3E033GC Introduction of Other Therapeutic Substance into Peripheral Vein, Percutaneous Approach (ICD-10-PCS; 2018-03-29)
DX: Z51.11 Encounter for antineoplastic chemotherapy (principal); Z53.8 Procedure and treatment not carried out for other reasons; C50.919 Malignant neoplasm of unspecified site of unspecified female breast
CPT/HCPCS: 36415; 80053; 80076; 83735; 85025; 96361; 96365; 96367; 96375; 96413; J1100

== ENCOUNTER 2018-04-05 07:37 | Day surgery (SDC) | payer OTHER, BC ==
[2018-04-05] MEDS ORDERED: DEXAMETHASONE INJECTION 10 MG, RANITIDINE INJECTION 50 MG, DIPHENHYDRAMINE 50 MG in SOD... IVPB ONE (10:00)
[2018-04-05] MEDS ORDERED: SODIUM CHLORIDE 500 ML IV ONE (10:00)
[2018-04-05] MEDS ORDERED: PACLITAXEL 150 MG in SODIUM CHLORIDE 250 ML IVPB ONE (10:30)
[2018-04-05 11:41] LABS: BASO % 0.9 % (0-2.0); EOS % 1.1 % (0-4.5); HEMATOCRIT 33.9 % (32.4-45.2); HEMOGLOBIN 11.5 GM/dL (10.7-15.3); LYMPH % 27.1 % (8-40); MCH 29.7 pg (25.7-33.7); MCHC 33.9 g/dl (32.0-36.0); MEAN CELL VOLUME 87.3 fl (80-96); MEAN PLT VOLUME 7.6 fl (7.5-11.1); MONO % 11.7 % (3.8-10.2); NEUT % 59.2 % (42.8-82.8); PLATELET COUNT 292 K/MM3 (134-434); RBC 3.88 M/mm3 (3.60-5.2); RDW 17.4 % (11.6-15.6); WHITE BLOOD COUNT 7.2 K/mm3 (4.0-10.0)
[2018-04-05 12:05] LABS: ALBUMIN 3.3 g/dl (3.4-5.0)
[2018-04-05 12:06] LABS: CHLORIDE 109 mmol/L (98-107); POTASSIUM 3.6 mmol/L (3.5-5.1); SODIUM 141 mmol/L (136-145)
[2018-04-05 12:12] LABS: ALBUMIN 2.5 g/dl (3.4-5.0); ALK PHOS 79 U/L (45-117); ANION GAP 9 MMOL/L (8-16); BILIRUBIN,TOTAL 0.9 mg/dL (0.2-1); BLOOD UREA NITROGEN 13 mg/dL (7-18); CO2 23 mmol/L (21-32); CREATININE 0.7 mg/dL (0.55-1.3); GLUCOSE,RANDOM 121 mg/dL (74-106); SGOT/AST 13 U/L (15-37); SGPT/ALT 30 U/L (13-61); TOT PROT 6.2 g/dl (6.4-8.2)
[2018-04-05 12:15] LABS: BILIRUBIN,DIRECT 0.2 mg/dL (0.0-0.2); BILIRUBIN,TOTAL 0.7 mg/dL (0.2-1)
[2018-04-05] MEDS ORDERED: DEXAMETHASONE SOD PHOSPHATE 10 MG/1 ML VIAL IVPB ONE (13:30)
[2018-04-05 13:37] LABS: CALCIUM 8.8 mg/dL (8.5-10.1)
[2018-04-05 13:54] LABS: ACANTHOCYTES 0; ANISOCYTOSIS 0; HELMET CELLS 0; HOWELL-JOLLY BODIES 0; MACROCYTOSIS 0; OVALOCYTE 0; PLATELET ESTIMATE NORMAL; ROULEAU 0; SICKELED CELLS 0; TARGET CELLS 0; TEAR DROP CELLS 0; TOXIC GRANULATION 0
[2018-04-05] MEDS ORDERED: SODIUM CHLORIDE IVPB ONE (14:00)
[2018-04-05] MEDS ORDERED: PACLITAXEL IVPB ONE (14:00)
[2018-04-05 18:57] VITALS: BP 123/61; PULSE 72; TEMP 97.8
== END 2018-04-05 19:15 | disposition home or self-care (01) ==
LOC: JONCCHEMO 07:37 → J7W 13:00 → JONCCHEMO 19:15
PROVIDERS: ATTEND Internal Medicine Hematology & Oncology
DX: Z51.11 Encounter for antineoplastic chemotherapy (principal); C50.919 Malignant neoplasm of unspecified site of unspecified female breast
CPT/HCPCS: 36415; 80053; 80076; 83735; 85025; 96361; 96367; 96375; 96413; J1100

== ENCOUNTER 2018-04-12 07:45 | Day surgery (SDC) | payer OTHER, BC ==
[2018-04-12] MEDS ORDERED: DEXAMETHASONE INJECTION 10 MG, DIPHENHYDRAMINE 50 MG, RANITIDINE INJECTION 50 MG in SOD... IVPB ONE (10:00)
[2018-04-12] MEDS ORDERED: PACLITAXEL 150 MG in SODIUM CHLORIDE 250 ML IVPB ONE (10:30)
[2018-04-12] MEDS ORDERED: TRASTUZUMAB IVPB ONE (10:30)
[2018-04-12] MEDS ORDERED: SODIUM CHLORIDE IVPB ONE (10:30)
[2018-04-12] MEDS ORDERED: SODIUM CHLORIDE 500 ML IV ONE (11:30)
[2018-04-12 11:36] LABS: BASO % 0.7 % (0-2.0); EOS % 1.3 % (0-4.5); HEMOGLOBIN 11.5 GM/dL (10.7-15.3); LYMPH % 25.4 % (8-40); MCH 29.3 pg (25.7-33.7); MCHC 33.7 g/dl (32.0-36.0); MEAN CELL VOLUME 86.9 fl (80-96); MEAN PLT VOLUME 7.9 fl (7.5-11.1); MONO % 5.8 % (3.8-10.2); NEUT % 66.8 % (42.8-82.8); PLATELET COUNT 252 K/MM3 (134-434); RBC 3.91 M/mm3 (3.60-5.2); RDW 17.4 % (11.6-15.6); WHITE BLOOD COUNT 9.1 K/mm3 (4.0-10.0)
[2018-04-12 12:53] LABS: ALBUMIN 3.5 g/dl (3.4-5.0); ALK PHOS 70 U/L (45-117); ANION GAP 8 MMOL/L (8-16); BILIRUBIN,TOTAL 0.6 mg/dL (0.2-1); BLOOD UREA NITROGEN 17 mg/dL (7-18); CALCIUM 9.2 mg/dL (8.5-10.1); CHLORIDE 110 mmol/L (98-107); CO2 24 mmol/L (21-32); CREATININE 0.8 mg/dL (0.55-1.3); GLUCOSE,RANDOM 84 mg/dL (74-106); POTASSIUM 4.3 mmol/L (3.5-5.1); SGOT/AST 14 U/L (15-37); SGPT/ALT 27 U/L (13-61); SODIUM 142 mmol/L (136-145); TOT PROT 6.2 g/dl (6.4-8.2)
[2018-04-12 12:55] LABS: ALBUMIN 3.4 g/dl (3.4-5.0); BILIRUBIN,DIRECT 0.2 mg/dL (0.0-0.2); BILIRUBIN,TOTAL 0.6 mg/dL (0.2-1); MAGNESIUM 2.3 mg/dL (1.8-2.4); TOT PROT 6.2 g/dl (6.4-8.2)
[2018-04-12] MEDS ORDERED: ACETAMINOPHEN 325 MG TABLET (FP) PO ONE (13:00)
[2018-04-12] MEDS ORDERED: DEXAMETHASONE INJECTION 20 MG, RANITIDINE INJECTION 50 MG, DIPHENHYDRAMINE 50 MG in SOD... IVPB ONE (13:30)
[2018-04-12] MEDS ORDERED: PACLITAXEL 108 MG in SODIUM CHLORIDE 250 ML IVPB ONE (14:00)
[2018-04-12] MEDS ORDERED: SODIUM CHLORIDE 250 ML IV ONE ×2 (14:00→16:00)
[2018-04-12 14:15] LABS: ACANTHOCYTES 0; ANISOCYTOSIS 0; HELMET CELLS 0; HOWELL-JOLLY BODIES 0; MACROCYTOSIS 0; OVALOCYTE 0; PLATELET ESTIMATE NORMAL; ROULEAU 0; SICKELED CELLS 0; TARGET CELLS 0; TEAR DROP CELLS 0; TOXIC GRANULATION 0
[2018-04-12] MEDS ORDERED: amLODIPine BESYLATE 5 MG TABLET (FP) PO ONE (14:57)
[2018-04-12 17:14] VITALS: TEMP 98.4
[2018-04-12 18:26] VITALS: BP 140/76; PULSE 78
== END 2018-04-12 18:28 | disposition home or self-care (01) ==
LOC: JONCCHEMO 07:45 → J7W 13:14 → JONCCHEMO 18:28
PROVIDERS: ATTEND Internal Medicine Hematology & Oncology
DX: Z51.11 Encounter for antineoplastic chemotherapy (principal); C50.919 Malignant neoplasm of unspecified site of unspecified female breast
CPT/HCPCS: 36415; 80053; 80076; 83735; 85025; 96361; 96367; 96375; 96413; 96417; J1100; J9355

== ENCOUNTER 2018-05-02 11:00 | Inpatient (IN) | payer OTHER, BC ==
[2018-04-21 13:23] VITALS: BMI 30.2
--- NOTE | 2018-04-28 10:28 | HP ---
Admitting History and Physical - Primary Care Physician PCP: Dale Knight - Admission Chief Complaint: right breast cancer History of Present Illness: Patient is a 72 yo female who was incidentally noted to have right breast mass on PET scan (work up for lung nodules) back in 08/2017. US done of the right breast mass showed an irregular right breast subareolar mass approx 1.5 cm . An US guided core bx of the lesion was positive for invasive ductal ER and UT positive Her 2 positive. Patient then received neoadjuvant chemo which finished 03/2018. Patient is now presenting for bilateral mastectomy with right snbx, and bilateral reconstruction. History Source: Patient Limitations to Obtaining History: No Limitations - Past Medical History Cardiovascular: Yes: HTN, Hyperlipdemia Pulmonary: Yes: Asthma, Other (lung nodules followed by CT) Gastrointestinal: Yes: Constipation, Diverticulosis, Gastritis, Other Heme/Onc: Yes: Cancer, Current Chemotherapy ENT: Yes: Allergic Rhinitis, Other - Past Surgical History Past Surgical History: Yes: Appendectomy, Arthrosocopy, Breast Biopsy, Colonoscopy, Hysterectomy, Oopherectomy, Tubal Ligation, Upper Endoscopy - Smoking History Smoking history: Former smoker Have you smoked in the past 12 months: No Aproximately how many cigarettes per day: 2 If you are a former smoker, when did you quit?: 30 Years ago - Alcohol/Substance Use Hx Alcohol Use: Yes (SOCIALLY,2-3/week) History of Substance Use: reports: None - Social History ADL: Independent Occupation: retired [employer] secretary History of Recent Travel: No Home Medications - Allergies Allergies/Adverse Reactions: Allergies Allergy/AdvReac Type Severity Reaction Status Date / Time erythromycin base Allergy Intermediate Difficulty Verified 04/21/18 13:13 Breathing - Home Medications Home Medications: Ambulatory Orders Paroxetine HCl [Paxil -] 10 mg PO DAILY 01/27/15 Cetirizine HCl [Zyrtec -] 10 mg PO DAILY 11/04/15 Glucosamine Sulfate Dipot Chlr [Glucosamine] 1,000 mg PO DAILY 11/04/15 Rosuvastatin Calcium [Crestor] 20 mg PO HS 11/04/15 Cholecalciferol (Vitamin D3) [Vitamin D3] 4,000 iu PO DAILY 12/20/17 Fluticasone/Salmeterol [Advair 250-50 Diskus] 1 each IH DAILY PRN 12/27/17 Sodium Chloride Nasal [place] [[place] Nasal [place] -] 2 spray NS BID #1 bottle 01/25/18 Amlodipine Besylate [Norvasc -] 5 mg PO DAILY 04/21/18 Family Disease History - Family Disease History Family Disease History: Heart Disease: Father (cardiac ), CA: Mother (breast ca 90) Review of Systems - Review of Systems Cardiovascular: reports: No Symptoms Respiratory: reports: No Symptoms Physical Examination Constitutional: Yes: Well Nourished, Calm Breast(s): Yes: Other (Ptotic C-cup breasts without skin changes or nipple discharge noted. Positive fibrogandular nodularity without suspicious masses or adenopathy noted bilaterally.) Problem List - Problems (1) Breast cancer, right Code(s): C50.911 - MALIGNANT NEOPLASM OF UNSP SITE OF RIGHT FEMALE BREAST Qualifiers: Breast location: combined nipple and areola Estrogen receptor status: positive Patient sex: female Qualified Code(s): C50.011 - Malignant neoplasm of nipple and areola, right female breast; Z17.0 - Estrogen receptor positive status [ER+] Assessment/Plan Plan: Bilateral mastectomy with right snbx, lympho possible andx and reconstruction.
[2018-05-02] MEDS ORDERED: HEPARIN NA (PORCINE) 5,000 UNITS/ML 1ML VIAL ONE (12:55)
[2018-05-02] MEDS ORDERED: LIDOCAINE HCL 1%, 10 MG/ML (20ML VIAL) ONE (12:57)
[2018-05-02] MEDS ORDERED: ISOSULFAN BLUE 10 MG/ML VIAL SQ ONE (12:57)
[2018-05-02] MEDS ORDERED: PROPOFOL 20 ML ONE ×6 (14:32→18:04)
[2018-05-02] MEDS ORDERED: GENTAMICIN SO4 80 MG/2 ML VIAL ONE (14:52)
[2018-05-02] MEDS ORDERED: ceFAZolin SODIUM 1 GM VIAL ONE (14:52)
[2018-05-02] MEDS ORDERED: BACITRACIN 15 GM TUBE TOPICAL OINTMENT ONE (15:21)
[2018-05-02] MEDS ORDERED: DESFLURANE GAS 240 ML BOTTLE IH ONE (15:35)
[2018-05-02] MEDS ORDERED: ROCURONIUM BROMIDE 50 MG/5 ML VIAL ONE (15:36)
[2018-05-02] MEDS ORDERED: BUPIVACAINE LIPOSOME/PF (EXPAREL) 266 MG/20 ML VIAL ONE (15:49)
[2018-05-02] MEDS ORDERED: BUPIVACAINE HCL 0.25% 125 MG/50 ML VIAL ONE (15:51)
[2018-05-02] MEDS ORDERED: BUPIVACAINE HCL/PF 2.5 MG/ML - 30 ML VIAL IJ ONE (15:51)
[2018-05-02] MEDS ORDERED: SODIUM CHLORIDE 0.9% P/F 10 ML VIAL IJ ONE (16:10)
[2018-05-02] MEDS ORDERED: oxyCODONE HCL 5 MG TABLET PO PRN (17:05)
[2018-05-02] MEDS ORDERED: ONDANSETRON 4 MG/2 ML VIAL IVPUSH PRN ×2 (17:05→17:25)
[2018-05-02] MEDS ORDERED: ACETAMINOPHEN 325 MG TABLET (FP) PO PRN (17:05)
[2018-05-02] MEDS ORDERED: diazePAM 5 MG TABLET PO PRN (17:13)
[2018-05-02] MEDS ORDERED: DEXTROSE 5%-0.45% SALINE 1,000 ML IV SCH (17:15)
[2018-05-02] MEDS ORDERED: LACTATED RINGERS SOLUTION 1,000 ML IV SCH (17:30)
[2018-05-02] MEDS ORDERED: ONDANSETRON 4 MG/2 ML VIAL ONE (18:44)
[2018-05-02] MEDS ORDERED: NEOSTIGMINE METHYLSULFATE 0.5 MG/ML - 10 ML MDV ONE (18:47)
[2018-05-02] MEDS ORDERED: GLYCOPYRROLATE 0.2 MG/1 ML VIAL ONE (18:47)
--- NOTE | 2018-05-02 19:13 | OP ---
Operative Note - Note: Operative Date: 05/02/18 Pre-Operative Diagnosis: Right breast cancer Operation: Bilateral breast reconstruction with expanders and alloderm after bilateral mastectomy Post-Operative Diagnosis: Same as Pre-op Surgeon: Dameon Sanchez Block Cuber: Alexx Claudio Anesthesia: General Estimated Blood Loss (mls): 25 Fluid Volume Replaced (mls): 1,000 Operative Report Dictated: Yes
--- NOTE | 2018-05-02 19:14 | SURG ---
Surgery Chicken Vaccinator Note Chicken Vaccinator: Alexx Claudio PA-C Date of Service: 05/02/18 Diagnosis: Right breast cancer Procedure: Bilateral breast reconstruction with expanders and alloderm, after bilateral mastectomy I was present for the entirety of the operative procedure. For further detail, please refer to operative report.
[2018-05-02] MEDS: CEFAZOLIN 1 GM/D5W 1 GM/50 ML BAG IVPB SCH (20:58)
[2018-05-02] MEDS: oxyCODONE HCL 5 MG TABLET PO PRN (20:58)
--- NOTE | 2018-05-02 21:13 | OP ---
DATE OF OPERATION: 05/02/2018 PREOPERATIVE DIAGNOSIS: Right breast central breast cancer. POSTOPERATIVE DIAGNOSIS: Right breast central breast cancer. PROCEDURE: Right breast total mastectomy with sentinel lymph node biopsy and left breast prophylactic total mastectomy with bilateral front counter clerk reconstruction with AlloDerm. ANESTHESIA: General endotracheal anesthesia. PRIMARY SURGEON: Michael Huddleston MD DEPOSITION REPORTER: TRISTIAN Bell PRIMARY SURGEON FOR THE BILATERAL ARMED CUSTOM PROTECTION OFFICER RECONSTRUCTION WITH ALLODERM: Davian Sanchez MD There were no complications. Briefly, the patient is a 72-year-old postmenopausal white female with [place] and Sephardic Hoahaoism heritage. She has no family history of breast or ovarian cancer. She was found to have some lung nodules on CT of the chest and underwent a PET scan in August 2017, showing an enhancing mass in the right breast as well as a pelvic mass. The pelvic mass was excised and was benign. 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 MRI showed a 2.4-cm subareolar mass and she underwent neoadjuvant chemotherapy with Dr. Vaughn at [facility]. She had a complete clinical response after neoadjuvant chemotherapy and presents now for a right breast total mastectomy, sentinel lymph node biopsy and has decided upon a prophylactic total left breast mastectomy. She was seen by Dr. Davian Sanchez preoperatively and chose to have bilateral front counter clerk reconstructions. The patient was brought in for the procedure on May 02, 2018, and first underwent the lymphoscintigraphy through a periareolar injection around the right nipple/areolar complex at [facility]. She was then brought to the Finger Holding Area. In the holding area, site verification was made and informed consent was obtained. She was marked preoperatively by the plastic surgeon. She was brought into the operating room and laid on the OR table in a supine position. Venodynes were placed on the lower extremities prior to induction. She received a gram of Ancef prior to incision. She underwent general endotracheal anesthesia. Both breasts were sterilely prepped and draped in the usual fashion with the right breast prepped in the field. Then, 3 mL of Lymphazurin blue were injected intradermally and peritumorly around the right breast nipple/areolar complex and massage was instituted. After she was prepped and draped in the usual fashion, a timeout was performed. The right breast sentinel lymph node biopsy was first performed. Incision was made just below the hair-bearing area of the right axilla and dissection was undertaken and 4 sentinel lymph nodes were removed from the right axillary level 1, level 2 regions. The hottest sentinel lymph node had a 10-second gamma count over 30,000 and, after removal of all 4 sentinel nodes, background count was less than 10% of the hottest node. The first 3 nodes were blue. All 4 nodes were sent for frozen section, came back negative, so no further nodes were removed. At this point, the right breast mastectomy was performed, removing the entire nipple/areolar complex through a periareolar incision. Skin flaps were raised superiorly to the level of the clavicle, medially to the level of the sternum, laterally to the level of the latissimus, and inferiorly below the level of the inframammary fold. The breast was taken down off the pectoralis major muscle from [id number]; completely removed intact. It was oriented with a long/lateral, short/superior suture and it was sent to mammography, where specimen radiograph showed removal of the retroareolar clip. A separate anterior margin was taken on the superior skin flap and sent as separate anterior margin with a suture marked on biopsy cavity side. Hemostasis was achieved and the wound was copiously irrigated with warm sterile saline. At this point, instruments, gloves, gowns were changed and the left breast was approached. At this point, Dr. Sanchez scrubbed in the case to start performing the front counter clerk reconstruction on the right side. The left breast mastectomy was, again, performed through an elliptical incision around the nipple/areolar complex of the left breast, removing the entire nipple/areolar complex. Skin flaps were raised superiorly to the level of the clavicle, medially to the level of the sternum, laterally to the level of the latissimus, and inferiorly below the level of the inframammary fold. The breast was taken down off the pectoralis major muscle from [id number]; completely removed intact. It was oriented with a long/lateral, short/superior suture. Both breasts were sent down to pathology in formalin as left and right breast and each breast was weighed to allow for appropriate cosmetic result. Skin flaps were trimmed for a good cosmetic result and hemostasis was achieved and the wound was copiously irrigated with warm sterile saline. At this point, Dr. Sanchez became the primary surgeon to perform the bilateral subpectoral front counter clerk reconstructions with AlloDerm. Two Al drains will be placed around each implant and brought through separate stab incisions on the lateral skin flaps. Exparel will be injected intramuscularly for postoperative pain control. All wounds will be closed and this will be dictated separate by Dr. Sanchez. We also did exchange the left subclavian vein single-lumen Port-a-Cath, which had not been functioning well. The patient required to stay on Herceptin and, so, the left-sided Port-a-Cath and the catheter exchanged over a wire with a new catheter and Port-a-Cath chamber placed in the infraclavicular pocket. We did this all through the same infraclavicular incision and there was excellent blood return. The port was flushed with concentrated heparin 1 mL with 1000 units/mL and the wound was closed using interrupted 3-0 deep dermal Vicryl suture and a running 4-0 subcuticular Biosyn suture. We will get a postoperative chest x-ray to confirm placement, but the entire placement was done under fluoroscopy without difficulty. The patient will be recovered in the postanesthesia care unit at the end of the surgery and will be admitted postoperatively for wound and pain management. All sponge and needle counts were correct at this point in the case and estimated blood loss was about 125 mL and she was hemodynamically stable throughout. MICHAEL HUDDLESTON M.D. [id number]
[2018-05-02] MEDS: ROSUVASTATIN CA 20 MG TABLET (FP) PO SCH (21:22)
[2018-05-02] MEDS: BUDESONIDE/FORMETEROL FUMARATE 80/4.5 mcg INHALER IH SCH (21:22)
[2018-05-02] MEDS ORDERED: PT OWN MED DRAWER 7, Y5N ONE (21:32)
[2018-05-02] MEDS ORDERED: ZOLPIDEM TARTRATE 5 MG TABLET PO PRN (22:00)
[2018-05-03] MEDS: CEFAZOLIN 1 GM/D5W 1 GM/50 ML BAG IVPB SCH ×4 (02:07→20:27)
[2018-05-03] MEDS: oxyCODONE HCL 5 MG TABLET PO PRN ×4 (02:16→20:25)
[2018-05-03] MEDS: HEPARIN NA (PORCINE) 5,000 UNITS/ML 1ML VIAL SQ SCH ×2 (07:43→21:11)
[2018-05-03] MEDS ORDERED: HEPARIN NA (PORCINE) 5,000 UNITS/ML 1ML VIAL SQ SCH (08:00)
[2018-05-03 08:03] LABS: HEMATOCRIT 31.3 % (32.4-45.2); MCH 28.3 pg (25.7-33.7); MCHC 31.9 g/dl (32.0-36.0); MEAN CELL VOLUME 88.8 fl (80-96); MEAN PLT VOLUME 7.7 fl (7.5-11.1); PLATELET COUNT 278 K/MM3 (134-434); RBC 3.53 M/mm3 (3.60-5.2); RDW 15.4 % (11.6-15.6); WHITE BLOOD COUNT 10.1 K/mm3 (4.0-10.8)
--- NOTE | 2018-05-03 08:53 | PN ---
Progress Note, Physician Chief Complaint: Right breast cancer S/P neoadjuvant chemotherapy and bilateral total mastectomies right sentenel node biopsy alloderm and delinquent account clerk reconstruction History of Present Illness: Patient is OOB , no nausea or vomiting , pain controlled with oxycodone - Current Medication List Current Medications: Active Medications Acetaminophen (Tylenol -) 650 mg PO Q4H PRN PRN Reason: PAIN 1-3 Amlodipine Besylate (Norvasc -) 5 mg PO DAILY [facility] Budesonide/Formoterol Fumarate (Symbicort 80/4.5mcg -) 2 puff IH BID [facility] Last Admin: 05/02/18 21:22 Dose: 2 puff Diazepam (Valium -) 5 mg PO Q8H PRN PRN Reason: WITHDRAWAL(CONT SUBST) Fentanyl (Sublimaze Injection -) 50 mcg IVPUSH [id number] PRN PRN Reason: PAIN-PACU ORDER X 4 DOSES ONLY Heparin Sodium (Porcine) (Heparin -) 5,000 unit SQ BID@0800,2000 [facility] Heparin Sodium (Porcine) (Heparin -) 5,000 unit SQ BID [facility] Last Admin: 05/03/18 07:43 Dose: 5,000 unit Cefazolin Sodium (Ancef 1 Gm Premixed Ivpb -) 1 gm in 50 mls @ 100 mls/hr IVPB Q6H-IV [facility] Stop: 05/09/18 20:59 Last Admin: 05/03/18 02:07 Dose: 100 mls/hr Dextrose/Sodium Chloride (D5-1/2ns -) 1,000 mls @ 100 mls/hr IV ASDIR [facility] Lactated Ringer's (Lactated Ringers Solution) 1,000 mls @ 125 mls/hr IV ASDIR [facility] Loratadine (Claritin -) 10 mg PO DAILY [facility] Ondansetron HCl (Zofran Injection) 4 mg IVPUSH Q6H PRN PRN Reason: NAUSEA AND/OR VOMITING Ondansetron HCl (Zofran Injection) 4 mg IVPUSH Q6H PRN PRN Reason: NAUSEA AND/OR VOMITING Oxycodone HCl (Roxicodone -) 5 mg PO Q4H PRN PRN Reason: PAIN LEVEL 1-5 Last Admin: 05/03/18 06:02 Dose: 5 mg Oxycodone HCl (Roxicodone -) 10 mg PO Q4H PRN PRN Reason: PAIN LEVEL 6-10 Paroxetine HCl (Paxil -) 10 mg PO DAILY [facility] Rosuvastatin Calcium (Crestor -) 20 mg PO HS [facility] Last Admin: 05/02/18 21:22 Dose: 20 mg Zolpidem Tartrate (Ambien -) 5 mg PO HS PRN PRN Reason: Insomnia - Objective Vital Signs: Vital Signs Temperature 99.0 F 05/03/18 06:00 Pulse Rate 75 05/03/18 06:00 Respiratory Rate 18 05/03/18 07:54 Blood Pressure 126/55 L 05/03/18 06:00 O2 Sat by Pulse Oximetry (%) 95 05/03/18 07:54 Constitutional: Yes: No Distress Breast(s): Yes: Other (Bilateral skin flaps viable incision intact with steristrips KIANA drains functiong well dressing s changed, No Signs of infection) Labs: CBC, BMP 05/03/18 07:30 Problem List - Problems (1) Breast cancer, right Code(s): C50.911 - MALIGNANT NEOPLASM OF UNSP SITE OF RIGHT FEMALE BREAST Qualifiers: Breast location: combined nipple and areola Estrogen receptor status: positive Patient sex: female Qualified Code(s): C50.011 - Malignant neoplasm of nipple and areola, right female breast; Z17.0 - Estrogen receptor positive status [ER+] Assessment/Plan Continue IV antibiotics SQ heparin and SCDs oxycodone , valium, tylenol prn Plan for discharge tomorrow
[2018-05-03] MEDS ORDERED: PT OWN MED DRAWER 7, Y5N ONE ×3 (09:10→21:14)
[2018-05-03] MEDS: BUDESONIDE/FORMETEROL FUMARATE 80/4.5 mcg INHALER IH SCH ×2 (09:26→21:15)
[2018-05-03] MEDS: PARoxetine HCL 10 MG TABLET (FP) PO SCH (09:27)
[2018-05-03] MEDS: LORATADINE 10 MG TABLET PO SCH (09:27)
[2018-05-03] MEDS: amLODIPine BESYLATE 5 MG TABLET (FP) PO SCH (09:27)
--- NOTE | 2018-05-03 09:42 | PN ---
Progress Note (short form) - Note Progress Note: 72F POD1 s/p bilateral mastectomy with right sentinel lymph node biopsy, portacath removal, bilateral reconstruction under GA-ETT. Pt states that pain is well controlled and reports no anesthetic complications. AVSS. Motor and sensory function intact in bilateral lower extremities. Continue current regimen.
[2018-05-03] MEDS: ACETAMINOPHEN 325 MG TABLET (FP) PO PRN ×2 (11:37→20:26)
--- NOTE | 2018-05-03 16:55 | OP ---
DATE OF OPERATION: 05/02/2018 TITLE OF PROCEDURE: 1. Bilateral breast reconstruction with tissue expanders in acellular dermal matrix and separate right-sided axillary wound complex repair 4 centimeters. 2. Intraoperative angiography. 3. Bilateral intercostal Exparel blocks. ATTENDING SURGEON: Dameon Sanchez MD DANCE INSTRUCTOR: Alexx TRISTIAN at [facility]. The procedure was performed in combination with a bilateral mastectomy with right-sided sentinel lymph node biopsy performed by Dr. Dale Knight and his team. That procedure is to be dictated separately by Dr. Knight. DESCRIPTION OF THE PROCEDURE: The patient is marked in the holding area awake and aware of all incisions and resulting scars. She understands and agrees to proceed. The procedure is as follows. Sequential compression stockings and BRODERICK hose are applied in the holding area. The patient is given 2 g of Ancef preoperatively. She is prepped and draped in a standard surgical fashion. A time-out is called. The patients procedural site is verified. A Sharpe catheter had been placed by Dr. Knight and his team. All positioning and draping is performed by Dr. Knight and his team. I am called in after completion of the right-sided mastectomy. At this point reconstruction is performed and the reconstruction is as follows. The lateral border of the pectoralis major muscle is identified and a subpectoral plane is developed to its medial sternal attachments. The patient had been marked for the bilateral inframammary fold. The inframammary fold is lowered 1 cm and this portion of the chest wall is then marked. The AlloDerm is brought up into the field and is rinsed in triple antibiotic solution. It is then oriented and secured to the inframammary fold as well as the lateral mammary fold to accommodate 15 cm width tissue surveying technician. Sewing of the acellular dermal matrix is done with a running locking 2-0 PDS suture. At this point the wound is copiously irrigated. Standard triple antibiotic solution is used. Meticulous hemostasis is achieved. An [employer] style 133 [id number] tissue surveying technician is then brought into the field. Only new gloves are used. The surveying technician is evacuated of all air. It is then oriented properly and placed into the pocket. The medial free edge of the AlloDerm is then sewn to the lateral free edge of the pectoralis major muscle which is done with a 2-0 PDS suture. Using magnifier the port is identified. Using a closed filling system the tissue surveying technician is inflated to 250 mL with no tension visualized on the tissues. At this point the skin is tailor tacked. It should be noted that prior to any closure Exparel is injected into the surrounding tissues. The Exparel is a mixture of 20 mL of Exparel with 40 mL of 0.25% Marcaine plain. Then 30 mL of this mixture was injected into the right pectoralis and peripheral tissues also injected as an intercostal block in the 4th and 5th rib spaces. This injection is performed bilaterally as an intercostal block. A mirror image procedure is then performed on the left side; however, attention is given towards assuring that the position of the tissue surveying technician is in an identical position to the one on the right. This is done with multiple reference points and measurements. Once this is assured the tissue surveying technician is secured in its place on both sides using the suture tabs and a 3-0 Vicryl suture. The AlloDerm on the left side is then closed to the free edge of the pectoralis major muscle with a running 2-0 PDS suture. The skin is tailor tacked closed with interrupted trina and the SPY Indocy[employer] intraoperative angiography machine is then brought into the field sterilely draped. SPY is performed showing excellent profusion on both sides. There is a small area on the inferior skin flap on the left side that is slightly hypoperfused at the 6 oclock position; however, there is extra skin on the left side and this is able to be excised without complication or excess tension. Skin edges are excised using facelift scissors. The deep fatty capsular tissue of the breast is closed with a running 3-0 Monocryl suture. The dermis is closed with a series of interrupted buried deep dermal 3-0 Monocryl suture followed by a running subcuticular 3-0 Monocryl suture. The right axillary wound is then a closed deep fascial closure with a series of interrupted 3-0 Monocryl suture. The skin was then closed with a series of a buried interrupted buried deep 3-0 Monocryl suture followed by a running subcuticular 3-0 Monocryl suture. All procedures are tolerated well. The dressings are applied with Steri-Strips and ABD gauze. Prior to final closure, two flat KIANA drains were brought out through the lateral stab wound incisions on each side secured with a 2-0 silk drain suture. DAMEON SANCHEZ M.D. [id number]
[2018-05-03] MEDS: ROSUVASTATIN CA 20 MG TABLET (FP) PO SCH (21:12)
[2018-05-04] MEDS: CEFAZOLIN 1 GM/D5W 1 GM/50 ML BAG IVPB SCH ×2 (03:09→08:21)
[2018-05-04] MEDS: ACETAMINOPHEN 325 MG TABLET (FP) PO PRN (05:42)
[2018-05-04] MEDS: oxyCODONE HCL 5 MG TABLET PO PRN (05:43)
[2018-05-04] MEDS: HEPARIN NA (PORCINE) 5,000 UNITS/ML 1ML VIAL SQ SCH ×2 (08:20→10:11)
--- NOTE | 2018-05-04 09:03 | PN ---
Progress Note, Physician Chief Complaint: Right breast cancer S/P neoadjuvant chemotherapy ,Bilateral total mastectomies, right sentenel node biopsy reconstruction with alloderm and account receivable associate History of Present Illness: Patient is sitting up and and eating, currently with oxygen per nasal canula, Oxycodone prn pain , She is C/O of some pain bilateral chest and where drains are located. no SOB , mild cough from prior ?URI allergies. - Current Medication List Current Medications: Active Medications Acetaminophen (Tylenol -) 650 mg PO Q4H PRN PRN Reason: PAIN 1-3 Last Admin: 05/04/18 05:42 Dose: 650 mg Amlodipine Besylate (Norvasc -) 5 mg PO DAILY [facility] Last Admin: 05/03/18 09:27 Dose: 5 mg Budesonide/Formoterol Fumarate (Symbicort 80/4.5mcg -) 2 puff IH BID [facility] Last Admin: 05/03/18 21:15 Dose: 2 puff Diazepam (Valium -) 5 mg PO Q8H PRN PRN Reason: WITHDRAWAL(CONT SUBST) Heparin Sodium (Porcine) (Heparin -) 5,000 unit SQ BID [facility] Last Admin: 05/04/18 08:20 Dose: Not Given Cefazolin Sodium (Ancef 1 Gm Premixed Ivpb -) 1 gm in 50 mls @ 100 mls/hr IVPB Q6H-IV [facility] Stop: 05/09/18 20:59 Last Admin: 05/04/18 08:21 Dose: 100 mls/hr Dextrose/Sodium Chloride (D5-1/2ns -) 1,000 mls @ 100 mls/hr IV ASDIR [facility] Last Admin: 05/04/18 08:19 Dose: Not Given Lactated Ringer's (Lactated Ringers Solution) 1,000 mls @ 125 mls/hr IV ASDIR [facility] Last Admin: 05/04/18 08:19 Dose: Not Given Loratadine (Claritin -) 10 mg PO DAILY [facility] Last Admin: 05/03/18 09:27 Dose: 10 mg Ondansetron HCl (Zofran Injection) 4 mg IVPUSH Q6H PRN PRN Reason: NAUSEA AND/OR VOMITING Oxycodone HCl (Roxicodone -) 5 mg PO Q4H PRN PRN Reason: PAIN LEVEL 1-5 Last Admin: 05/04/18 05:43 Dose: 5 mg Oxycodone HCl (Roxicodone -) 10 mg PO Q4H PRN PRN Reason: PAIN LEVEL 6-10 Paroxetine HCl (Paxil -) 10 mg PO DAILY [facility] Last Admin: 05/03/18 09:27 Dose: 10 mg Rosuvastatin Calcium (Crestor -) 20 mg PO HS [facility] Last Admin: 05/03/18 21:12 Dose: 20 mg Zolpidem Tartrate (Ambien -) 5 mg PO HS PRN PRN Reason: Insomnia - Objective Vital Signs: Vital Signs Temperature 99.2 F 05/04/18 06:00 Pulse Rate 76 05/04/18 06:00 Respiratory Rate 18 05/04/18 06:00 Blood Pressure 135/55 L 05/04/18 06:00 O2 Sat by Pulse Oximetry (%) 98 05/04/18 06:00 Constitutional: Yes: No Distress Respiratory: Yes: Other (clear lungs bilaterally ,no wheezes or rhonchi) Breast(s): Yes: Other (Bilateral flaps viable incision intact with steristrips minimal echymosis near incision site, karrie drains functioning well ,dressing changed) Labs: CBC, BMP 05/03/18 07:30 Problem List - Problems (1) Breast cancer, right Code(s): C50.911 - MALIGNANT NEOPLASM OF UNSP SITE OF RIGHT FEMALE BREAST Qualifiers: Breast location: combined nipple and areola Estrogen receptor status: positive Patient sex: female Qualified Code(s): C50.011 - Malignant neoplasm of nipple and areola, right female breast; Z17.0 - Estrogen receptor positive status [ER+] Assessment/Plan continue IV antibiotic SCD OOb spirometry,DC oxygen per nasal canula consider discharge home later today oxycodone , valium prn pain
[2018-05-04] MEDS ORDERED: PT OWN MED DRAWER 7, Y5N ONE (09:53)
[2018-05-04] MEDS: PARoxetine HCL 10 MG TABLET (FP) PO SCH (10:11)
[2018-05-04] MEDS: LORATADINE 10 MG TABLET PO SCH (10:11)
[2018-05-04] MEDS: BUDESONIDE/FORMETEROL FUMARATE 80/4.5 mcg INHALER IH SCH (10:12)
[2018-05-04] MEDS: amLODIPine BESYLATE 5 MG TABLET (FP) PO SCH (10:12)
[2018-05-04 15:25] VITALS: BP 118/46; PULSE 84; TEMP 98.2
--- NOTE | 2018-05-09 13:12 | PATH ---
Surgical Pathology Report Patient Name: PRADEEP MARIN Med. Rec. #: [id number] /Age/Gender: 1945 (Age: 72) / F Account: [id number] Location: [facility] Taken: 05/02/2018 Received: 05/02/2018 Reported: 05/09/2018 Physicians: Dale Knight M.D. Specimen(s) Received A: RIGHT BREAST SENTINEL LYMPH NODE #1(FS) B: RIGHT BREAST SENTINEL LYMPH NODE #2 (FS) C: RIGHT BREAST SENTINEL LYMPH NODE #3 (FS) D: RIGHT BREAST SENTINEL LYMPH NODE #4 (FS) E: RIGHT BREAST F: RIGHT BREAST ANTERIOR MARGIN G: LEFT BREAST H: EXPLANTED PORTACATH Clinical History Right breast cancer retroareolar Intraoperative Consult Diagnosis A. [place] lymph node #1, frozen section: One negative lymph node (0/1). B. [place] lymph node #2, frozen section: One negative lymph node (0/1). C. [place] lymph node #3, frozen section: One negative lymph node (0/1). D. [place] lymph node #4, frozen section: One negative lymph node (0/1). Edith Travis M.D.,05/02/2018 Final Diagnosis A. lymph node, right breast sentinel #1, excision (FS): One lymph node, negative for metastatic carcinoma on H&E stain sections and cytokeratin (Ae1/3) immunostain (0/1). B. lymph node, right breast sentinel #2, excision (FS): One lymph node, negative for metastatic carcinoma on H&E stain sections and cytokeratin (Ae1/3) immunostain (0/1). C. lymph node, right breast sentinel #3, excision (FS): One lymph node, negative for metastatic carcinoma on H&E stain sections and cytokeratin (Ae1/3) immunostain (0/1). D. lymph node, right breast sentinel # 4, excision (FS): One lymph node, negative for metastatic carcinoma on H&E stain sections and cytokeratin (Ae1/3) immunostain (0/1). E. 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 Residual carcinoma is present IN THE RETROAREOLAR REGION as multiple scattered foci ranging from < 1 mm 5 mm in greatest dimension and comprising UP TO 40% of the tumor bed tissue. 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 Invasive carcinoma is focally close to (< 1 mm) the anterior soft tissue margin; DCIS is focally at 1 mm from the anterior margin. see specimen F for final anterior margin. Invasive carcinoma involves deep dermis of skin. Lymphovascular invasion is identified. Remaining breast tissue shows fibrocystic changes, columnar cell changes AND SCLEROSED FIBROADENOMA with associated calcifications. Prior biopsy site changes are identified. Pathologic stage (yptnm): ypT1a (m) ypN0. See also invasive carcinoma case summary below. The Note: The carcinoma is positive for E-Cadherin (performed at [facility]), which supports ductal phenotype. F. breast, right, anterior margin, excision: Benign breast tissue. G. breast, left, total mastectomy: Benign breast tissue. Nipple and skin with no pathologic findings. H. Port-A-Cath, explant: Port-A-Cath, as described (gross examination only). Comments Breast Invasive Carcinoma: Surgical Pathology Case Summary (Based on AJCC TNM 8 th edition) Procedure _X_ Total mastectomy (including nipple-sparing and skin-sparing mastectomy) Specimen Laterality _X_ Right Tumor Size _X_ Greatest dimension of largest invasive focus >1 mm (specify exact measurement) (millimeters): 5 mm Histologic Type _X_ Invasive carcinoma of no special type (ductal, not otherwise specified) Histologic Grade (Downing Histologic Score) Glandular (Acinar)/Tubular Differentiation _X_ Score 3 (<10% of tumor area forming glandular/tubular structures) Nuclear Pleomorphism _X_ Score 2 Mitotic Rate _X_ Score 1 Overall Grade _X_ Grade 2 (scores of 6 or 7) Tumor Focality _X_ Multiple foci of invasive carcinoma Number of foci: cannot be determined Sizes of individual foci: < 1 mm 5 mm Ductal Carcinoma In Situ (DCIS) _X_ DCIS is present in specimen _X_ Positive for EIC Tumor Extension Skin _X_ Invasive carcinoma directly invades into the dermis or epidermis without skin ulceration (this does not change the T stage) Margins Invasive Carcinoma Margins _X_ Uninvolved by invasive carcinoma Distance from closest margin (millimeters): < 1 mm from anterior soft tissue margin in mastectomy specimen E. Final anterior margin G is negative for carcinoma. DCIS Margins _X_ Uninvolved by DCIS Distance from closest margin (millimeters): 1 mm from anterior soft tissue margin in mastectomy specimen E. Final anterior margin G is negative for DCIS. Regional Lymph Nodes Number of Lymph Nodes with Macrometastases (>2 mm): 0 Number of Lymph Nodes with Micrometastases (>0.2 mm to 2 mm and/or >200 cells): 0 Number of Lymph Nodes with Isolated Tumor Cells (=0.2 mm and =200 cells): 0 Number of Lymph Nodes Examined: 4 Number of [place] Nodes Examined : 4 Treatment Effect Treatment Effect in the Breast _X_ Probable or definite response to presurgical therapy in the invasive carcinoma Treatment Effect in the Lymph Nodes _X_ No lymph node metastases and no prominent fibrous scarring in the nodes Lymphovascular Invasion _X_ Present Pathologic Stage Classification (pTNM, AJCC 8th Edition) Primary Tumor (Invasive Carcinoma) (pT) _X_ ypT1a (m): Tumor >1 mm but =5 mm in greatest dimension (round any measurement >1.0-1.9mm to 2 mm) Regional Lymph Nodes (pN) Category (pN) _X_ ypN0 Biomarker Studies Results of ER and NV studies performed on this specimen (block E3) at [facility] are as follows: ER (clone [id number] mouse monoclonal antibody by [employer]): > 90 % nuclear staining with strong intensity (Positive). NV (clone16 mouse monoclonal antibody by [employer]): < 5 % nuclear staining with moderate to weak intensity (Low Positive) Results of Her2 (IHC) & Ki-67 studies performed on this specimen (block E3) at [place], [place] ([id number]) are as follows: Her2 IHC (EP3 from [employer], formerly known as [id number], using [employer] Polymer Refine detection kit): 2+ (Equivocal). Ki67: < 5% (low proliferative index). Results of Her2 FISH studies will be reported separately in an addendum. Positive and negative controls (internal if applicable) show appropriate results. Formalin fixation time is within current ASCO/CAP recommendations for ER, NV and Her2 testing. Time to formalin fixation is not given. Electronically Signed Joseline Travis M.D. Addendum Reported: 05/17/2018 Addendum Diagnosis Results of Her2 FISH studies performed on block E3 at [place], [place] ([id number]) are as follows: Her2: 6.8 CEP17: 2.5 Ratio: 2.7 Interpretation: Positive. Joseline Travis M.D. Gross Description A. Received fresh labeled "sentinel lymph node #1," is a 1.0 x 0.7 x 0.3 cm lymph node with attached fatty tissue. A frozen section is performed on the lymph node. The frozen section residue is entirely submitted in one cassette. B. Received fresh for frozen section labeled the "sentinel lymph node #2," is a 0.3 x 0.2 x 0.2 cm lymph node with attached fatty tissue. A frozen section is performed on a lymph node. The frozen section residue is entirely submitted in one cassette. C. Received fresh for frozen section labeled "sentinel lymph node #3," is a 1.0 x 0.6 x 0.2 cm lymph node with attached fatty tissue. A frozen section is performed on the lymph node. The frozen section residue is entirely submitted in one cassette. D. Received fresh for frozen section labeled "sentinel lymph node #4," is a 0.6 x 0.3 x 0.2 cm lymph node with attached fatty tissue. A frozen section is performed on the lymph node. The frozen section is entirely submitted one cassette. E. Received in formalin, labeled "right breast," is a 668 gram, 16.0 x 12.0 x 6.5 cm. right mastectomy specimen with a short suture marking the superior aspect and a long suture marking the lateral aspect of the specimen, per the surgeon. The anterior surface displays a 9.8 x 4.0 cm coello, elliptical portion of skin with a 1.2 cm in diameter nipple. The deep margin is inked black and the anterior soft tissue margin is inked blue. The specimen is serially sectioned from lateral to medial. Sectioning reveals a 1.5 x 1.5 x 1.4 cm coello, firm, ill-defined mass in the retroareolar region, abutting the skin. The remaining breast parenchyma displays foci of white fibrous tissue. Paper Conservator sections are submitted in 19 cassettes as follows: 1-serially sectioned nipple; 2-subareolar shave; 3-ful- face section of retroareolar mass with skin; 6-9-qymkutdifx sections of retroareolar mass with skin (mass entirely submitted); 8-additional retroareolar tissue; 9-11-upper outer quadrant; 12-13-lower outer quadrant; 14-15-upper inner quadrant; 16-17-lower inner quadrant; 18-anterior soft tissue margin; 19-deep margin. F. Received in formalin labeled "right breast anterior margin," is a 3.3 x 3.0 x 0.5 cm portion of fibroadipose tissue with a suture marking the biopsy cavity side, per the surgeon. The new margin is inked blue and the specimen is serially sectioned. The specimen is entirely and sequentially submitted in 5 cassettes. G. Received in formalin, labeled "left breast," is a 756 gram, 16.0 x 14.0 x 7.0 cm. left mastectomy specimen with a short suture marking the superior aspect and a long suture marking the lateral aspect of the specimen, per the surgeon. The anterior surface displays a 9.0 x 3.5 cm coello, elliptical portion of skin with a 1.2 cm in diameter nipple. The deep margin is inked black and the anterior soft tissue margin is inked blue. The specimen is serially sectioned from medial to lateral. Sectioning reveals multiple foci of white fibrous tissue. No definitive mass is identified. Paper Conservator sections are submitted in 16 cassettes as follows: 1-serially sectioned nipple; 2-subareolar shave; 3-5-upper outer quadrant; 6-7-lower outer quadrant; 1-0-qklxtstjmimf tissue; 10-11-upper inner quadrant; 12-13-lower inner quadrant; 14-anterior soft tissue margin; 15-skin; 16-deep margin. Time to formalin fixation: Not given Total formalin fixation time: Approximately 24 hours H. Received fresh labeled "explanted Port-A-Cath," is a 2.6 x 2.4 x 1.4 cm purple, triangular device, consistent with a maryellen cath. Separately received within the same container is a 16 cm in length portion of white tubing. No soft tissue is present. No sections are submitted, gross only. 05/03/2018 saudi05/03/2018
== END 2018-05-04 15:19 | disposition home or self-care (01) | DRG 581 ==
LOC: FM/S 11:41
PROVIDERS: ADMIT Surgery Surgical Oncology; ATTEND Surgery Surgical Oncology
PROC: 07B50ZX Excision of Right Axillary Lymphatic, Open Approach, Diagnostic (ICD-10-PCS; principal; 2018-05-02 14:04)
PROC: 0HTV0ZZ Resection of Bilateral Breast, Open Approach (ICD-10-PCS; 2018-05-02 14:04)
PROC: 0HHV0NZ Insertion of Tissue Expander into Bilateral Breast, Open Approach (ICD-10-PCS; 2018-05-02 14:04)
DX: C50.911 Malignant neoplasm of unspecified site of right female breast (principal); E78.5 Hyperlipidemia, unspecified; Z17.0 Estrogen receptor positive status [ER+]; J45.909 Unspecified asthma, uncomplicated; I10 Essential (primary) hypertension
CPT/HCPCS: 36415; 71045-TC-FY; 76000-TC-FY; 78195-TC; 85027; 88300-TC; 88307-TC; 94760; A9541; J1644

== ENCOUNTER 2018-06-01 07:20 | Day surgery (SDC) | payer OTHER ==
[2018-06-01] MEDS ORDERED: ACETAMINOPHEN 325 MG TABLET (FP) PO ONE (08:00)
[2018-06-01] MEDS ORDERED: DEXAMETHASONE INJECTION 10 MG, DIPHENHYDRAMINE 25 MG in SODIUM CHLORIDE 100 ML IVPB ONE (08:00)
[2018-06-01] MEDS ORDERED: TRASTUZUMAB IVPB ONE (08:30)
[2018-06-01] MEDS ORDERED: SODIUM CHLORIDE IVPB ONE (08:30)
[2018-06-01 12:46] LABS: BASO % 1.1 % (0-2.0); EOS % 8.2 % (0-4.5); HEMATOCRIT 38.1 % (32.4-45.2); HEMOGLOBIN 12.2 GM/dL (10.7-15.3); LYMPH % 40.3 % (8-40); MCH 26.8 pg (25.7-33.7); MEAN CELL VOLUME 83.7 fl (80-96); MONO % 6.9 % (3.8-10.2); NEUT % 43.5 % (42.8-82.8); PLATELET COUNT 227 K/MM3 (134-434); RBC 4.56 M/mm3 (3.60-5.2); RDW 15.7 % (11.6-15.6); WHITE BLOOD COUNT 4.6 K/mm3 (4.0-10.0)
[2018-06-01 13:29] LABS: ALBUMIN 3.8 g/dl (3.4-5.0); ALK PHOS 83 U/L (45-117); ANION GAP 6 MMOL/L (8-16); BILIRUBIN,DIRECT 0.1 mg/dL (0.0-0.2); BILIRUBIN,TOTAL 0.4 mg/dL (0.2-1); BLOOD UREA NITROGEN 9 mg/dL (7-18); CALCIUM 9.6 mg/dL (8.5-10.1); CHLORIDE 106 mmol/L (98-107); CO2 29 mmol/L (21-32); CREATININE 0.7 mg/dL (0.55-1.3); GLUCOSE,RANDOM 84 mg/dL (74-106); MAGNESIUM 2.1 mg/dL (1.8-2.4); POTASSIUM 3.9 mmol/L (3.5-5.1); SGOT/AST 15 U/L (15-37); SGPT/ALT 22 U/L (13-61); SODIUM 140 mmol/L (136-145); TOT PROT 6.7 g/dl (6.4-8.2)
[2018-06-01 18:17] VITALS: BP 148/64; PULSE 57; TEMP 98
== END 2018-06-01 17:00 | disposition home or self-care (01) ==
LOC: JONCCHEMO 07:20 → J7W 14:45 → JONCCHEMO 17:00
PROVIDERS: ATTEND Internal Medicine Hematology & Oncology
DX: Z51.11 Encounter for antineoplastic chemotherapy (principal); C50.919 Malignant neoplasm of unspecified site of unspecified female breast
CPT/HCPCS: 36415; 80053; 80076; 83735; 85025; 96367; 96375; 96413; 96415; J9355

== ENCOUNTER 2018-06-22 07:36 | Day surgery (SDC) | payer OTHER ==
[2018-06-22] MEDS ORDERED: DIPHENHYDRAMINE 50 MG in SODIUM CHLORIDE 50 ML IVPB ONE (10:00)
[2018-06-22] MEDS ORDERED: ACETAMINOPHEN 325 MG TABLET (FP) PO ONE (10:00)
[2018-06-22] MEDS ORDERED: TRASTUZUMAB IVPB ONE (10:30)
[2018-06-22] MEDS ORDERED: SODIUM CHLORIDE IVPB ONE (10:30)
[2018-06-22 13:14] LABS: BASO % 0.4 % (0-2.0); EOS % 2.3 % (0-4.5); HEMATOCRIT 40.1 % (32.4-45.2); LYMPH % 37.2 % (8-40); MCH 26.5 pg (25.7-33.7); MCHC 32.3 g/dl (32.0-36.0); MEAN CELL VOLUME 82.1 fl (80-96); MEAN PLT VOLUME 8.6 fl (7.5-11.1); MONO % 8.1 % (3.8-10.2); PLATELET COUNT 234 K/MM3 (134-434); RBC 4.89 M/mm3 (3.60-5.2); RDW 15.2 % (11.6-15.6); WHITE BLOOD COUNT 5.4 K/mm3 (4.0-10.0)
[2018-06-22] MEDS ORDERED: DEXAMETHASONE SOD PHOSPHATE 4 MG/1 ML VIAL IVPB ONE (13:25)
[2018-06-22] MEDS ORDERED: SODIUM CHLORIDE 250 ML IV STA (13:27)
[2018-06-22 13:52] LABS: ALBUMIN 3.9 g/dl (3.4-5.0); ALK PHOS 84 U/L (45-117); ANION GAP 6 MMOL/L (8-16); BILIRUBIN,DIRECT 0.1 mg/dL (0.0-0.2); BILIRUBIN,TOTAL 0.4 mg/dL (0.2-1); BLOOD UREA NITROGEN 17 mg/dL (7-18); CALCIUM 9.8 mg/dL (8.5-10.1); CHLORIDE 105 mmol/L (98-107); CO2 28 mmol/L (21-32); CREATININE 0.8 mg/dL (0.55-1.3); GLUCOSE,RANDOM 92 mg/dL (74-106); POTASSIUM 4.2 mmol/L (3.5-5.1); SGOT/AST 15 U/L (15-37); SGPT/ALT 24 U/L (13-61); SODIUM 139 mmol/L (136-145); TOT PROT 6.9 g/dl (6.4-8.2)
[2018-06-22] MEDS ORDERED: PORTA CATH FLUSH 10 ML IVPUSH ONE (17:47)
[2018-06-22 17:52] VITALS: BP 151/64; PULSE 59
[2018-06-22 17:58] VITALS: TEMP 97.7
== END 2018-06-22 16:35 | disposition home or self-care (01) ==
LOC: JONCCHEMO 07:36 → J7W 13:52 → JONCCHEMO 16:35
PROVIDERS: ATTEND Internal Medicine Hematology & Oncology
DX: Z51.11 Encounter for antineoplastic chemotherapy (principal); C50.919 Malignant neoplasm of unspecified site of unspecified female breast
CPT/HCPCS: 36415; 80053; 80076; 83735; 85025; 96361; 96367; 96375; 96413; J9355

== ENCOUNTER 2018-07-13 05:28 | Day surgery (SDC) | payer OTHER, BC ==
[2018-07-13] MEDS ORDERED: ACETAMINOPHEN 325 MG TABLET (FP) PO ONE (08:00)
[2018-07-13] MEDS ORDERED: DIPHENHYDRAMINE 50 MG in SODIUM CHLORIDE 50 ML IVPB ONE (08:00)
[2018-07-13] MEDS ORDERED: SODIUM CHLORIDE IVPB ONE (08:30)
[2018-07-13] MEDS ORDERED: TRASTUZUMAB IVPB ONE (08:30)
[2018-07-13 10:28] LABS: BASO % 0.7 % (0-2.0); EOS % 2.5 % (0-4.5); HEMATOCRIT 41.1 % (32.4-45.2); HEMOGLOBIN 14.2 GM/dL (10.7-15.3); MCH 27.8 pg (25.7-33.7); MCHC 34.6 g/dl (32.0-36.0); MEAN CELL VOLUME 80.3 fl (80-96); MEAN PLT VOLUME 8.3 fl (7.5-11.1); MONO % 9.2 % (3.8-10.2); NEUT % 52.6 % (42.8-82.8); PLATELET COUNT 228 K/MM3 (134-434); RBC 5.12 M/mm3 (3.60-5.2); RDW 14.9 % (11.6-15.6); WHITE BLOOD COUNT 5.9 K/mm3 (4.0-10.0)
[2018-07-13 11:02] LABS: ALBUMIN 3.9 g/dl (3.4-5.0); ALK PHOS 84 U/L (45-117); ANION GAP 7 MMOL/L (8-16); BILIRUBIN,DIRECT 0.1 mg/dL (0.0-0.2); BILIRUBIN,TOTAL 0.3 mg/dL (0.2-1); BLOOD UREA NITROGEN 18 mg/dL (7-18); CALCIUM 9.6 mg/dL (8.5-10.1); CHLORIDE 105 mmol/L (98-107); CO2 28 mmol/L (21-32); CREATININE 0.7 mg/dL (0.55-1.3); GLUCOSE,RANDOM 93 mg/dL (74-106); MAGNESIUM 2.2 mg/dL (1.8-2.4); POTASSIUM 3.9 mmol/L (3.5-5.1); SGOT/AST 13 U/L (15-37); SGPT/ALT 25 U/L (13-61); SODIUM 141 mmol/L (136-145); TOT PROT 6.9 g/dl (6.4-8.2)
[2018-07-13] MEDS ORDERED: SODIUM CHLORIDE 250 ML IV ONE (12:40)
[2018-07-13] MEDS ORDERED: SODIUM CHLORIDE 500 ML IV ONE (13:00)
[2018-07-13] MEDS ORDERED: ACETAMINOPHEN 325 MG TABLET (FP) ONE (14:02)
[2018-07-13 15:21] VITALS: TEMP 97.7
[2018-07-13 15:23] VITALS: BP 124/79; PULSE 53
== END 2018-07-13 15:15 | disposition home or self-care (01) ==
LOC: JONCCHEMO 05:28 → J7W 12:30 → JONCCHEMO 15:15
PROVIDERS: ATTEND Internal Medicine Hematology & Oncology
DX: Z51.11 Encounter for antineoplastic chemotherapy (principal); C50.919 Malignant neoplasm of unspecified site of unspecified female breast
CPT/HCPCS: 36415; 80053; 80076; 83735; 85025; 96361; 96367; 96375; 96413; J9355

== ENCOUNTER 2018-08-03 07:17 | Day surgery (SDC) | payer OTHER, BC ==
[2018-08-03] MEDS ORDERED: ACETAMINOPHEN 325 MG TABLET (FP) PO ONE (08:00)
[2018-08-03] MEDS ORDERED: DIPHENHYDRAMINE 50 MG in SODIUM CHLORIDE 50 ML IVPB ONE (08:00)
[2018-08-03] MEDS ORDERED: TRASTUZUMAB IVPB ONE (08:30)
[2018-08-03] MEDS ORDERED: SODIUM CHLORIDE IVPB ONE (08:30)
[2018-08-03 12:25] LABS: BASO % 0.7 % (0-2.0); EOS % 1.7 % (0-4.5); HEMATOCRIT 44.5 % (32.4-45.2); HEMOGLOBIN 15.2 GM/dL (10.7-15.3); LYMPH % 40.5 % (8-40); MCH 27.1 pg (25.7-33.7); MCHC 34.1 g/dl (32.0-36.0); MEAN CELL VOLUME 79.5 fl (80-96); MEAN PLT VOLUME 8.2 fl (7.5-11.1); MONO % 9.8 % (3.8-10.2); NEUT % 47.3 % (42.8-82.8); PLATELET COUNT 252 K/MM3 (134-434); WHITE BLOOD COUNT 4.9 K/mm3 (4.0-10.0)
[2018-08-03 13:13] LABS: ALK PHOS 83 U/L (45-117); ANION GAP 7 MMOL/L (8-16); BILIRUBIN,DIRECT 0.1 mg/dL (0.0-0.2); BILIRUBIN,TOTAL 0.4 mg/dL (0.2-1); BLOOD UREA NITROGEN 22 mg/dL (7-18); CALCIUM 9.6 mg/dL (8.5-10.1); CHLORIDE 104 mmol/L (98-107); CO2 31 mmol/L (21-32); CREATININE 0.8 mg/dL (0.55-1.3); GLUCOSE,RANDOM 93 mg/dL (74-106); POTASSIUM 4.1 mmol/L (3.5-5.1); SGOT/AST 14 U/L (15-37); SGPT/ALT 27 U/L (13-61); SODIUM 142 mmol/L (136-145)
[2018-08-03] MEDS ORDERED: ALTEPLASE 2 MG VIAL CVP ONE (15:00)
[2018-08-03 16:04] VITALS: TEMP 97.8
[2018-08-03 16:08] VITALS: BP 131/72; PULSE 57
[2018-08-03] MEDS ORDERED: PORTA CATH FLUSH 10 ML IVPUSH ONE (16:08)
== END 2018-08-03 16:08 | disposition home or self-care (01) ==
LOC: JONCCHEMO 07:17 → J7W 14:02 → JONCCHEMO 16:08
PROVIDERS: ATTEND Internal Medicine Hematology & Oncology
DX: Z51.11 Encounter for antineoplastic chemotherapy (principal); C50.919 Malignant neoplasm of unspecified site of unspecified female breast
CPT/HCPCS: 36415; 80048; 80076; 83735; 85025; 96367; 96375; 96413; J2997; J9355

== ENCOUNTER 2018-08-31 07:23 | Day surgery (SDC) | payer OTHER, BC ==
[2018-08-31] MEDS ORDERED: ACETAMINOPHEN 325 MG TABLET (FP) PO ONE (10:00)
[2018-08-31] MEDS ORDERED: DIPHENHYDRAMINE 50 MG in SODIUM CHLORIDE 50 ML IVPB ONE (10:00)
[2018-08-31] MEDS ORDERED: SODIUM CHLORIDE IVPB ONE (10:30)
[2018-08-31] MEDS ORDERED: TRASTUZUMAB IVPB ONE (10:30)
[2018-08-31 12:00] LABS: BASO % 0.6 % (0-2.0); HEMATOCRIT 43.2 % (32.4-45.2); HEMOGLOBIN 14.6 GM/dL (10.7-15.3); LYMPH % 32.9 % (8-40); MCH 26.8 pg (25.7-33.7); MCHC 33.8 g/dl (32.0-36.0); MEAN CELL VOLUME 79.3 fl (80-96); MEAN PLT VOLUME 8.1 fl (7.5-11.1); MONO % 8.2 % (3.8-10.2); NEUT % 57.3 % (42.8-82.8); PLATELET COUNT 235 K/MM3 (134-434); RBC 5.44 M/mm3 (3.60-5.2); RDW 15.8 % (11.6-15.6); WHITE BLOOD COUNT 6.1 K/mm3 (4.0-10.0)
[2018-08-31 12:28] LABS: ALBUMIN 4.1 g/dl (3.4-5.0); ALK PHOS 84 U/L (45-117); ANION GAP 7 MMOL/L (8-16); BILIRUBIN,TOTAL 0.4 mg/dL (0.2-1); BLOOD UREA NITROGEN 17 mg/dL (7-18); CALCIUM 9.2 mg/dL (8.5-10.1); CHLORIDE 104 mmol/L (98-107); CO2 28 mmol/L (21-32); CREATININE 0.8 mg/dL (0.55-1.3); GLUCOSE,RANDOM 97 mg/dL (74-106); POTASSIUM 4.3 mmol/L (3.5-5.1); SGOT/AST 13 U/L (15-37); SGPT/ALT 23 U/L (13-61); SODIUM 139 mmol/L (136-145); TOT PROT 7.3 g/dl (6.4-8.2)
[2018-08-31 12:29] LABS: ALBUMIN 4.1 g/dl (3.4-5.0); BILIRUBIN,DIRECT 0.2 mg/dL (0.0-0.2); BILIRUBIN,TOTAL 0.6 mg/dL (0.2-1); TOT PROT 7.2 g/dl (6.4-8.2)
[2018-08-31 17:35] VITALS: BP 126/80; PULSE 77; TEMP 97.7
== END 2018-08-31 14:35 | disposition home or self-care (01) ==
LOC: JONCCHEMO 07:23 → J7W 13:32 → JONCCHEMO 14:35
PROVIDERS: ATTEND Internal Medicine Hematology & Oncology
DX: Z51.11 Encounter for antineoplastic chemotherapy (principal); C50.919 Malignant neoplasm of unspecified site of unspecified female breast
CPT/HCPCS: 36415; 80053; 80076; 83735; 85025; 96413; J9355

== ENCOUNTER 2018-09-21 07:16 | Day surgery (SDC) | payer OTHER, BC ==
[2018-09-21] MEDS ORDERED: ACETAMINOPHEN 325 MG TABLET (FP) PO ONE (08:00)
[2018-09-21] MEDS ORDERED: DIPHENHYDRAMINE 50 MG in SODIUM CHLORIDE 50 ML IVPB ONE (08:00)
[2018-09-21] MEDS ORDERED: TRASTUZUMAB IVPB ONE (08:30)
[2018-09-21] MEDS ORDERED: SODIUM CHLORIDE IVPB ONE (08:30)
[2018-09-21 12:25] VITALS: TEMP 97.7
[2018-09-21 12:41] LABS: BASO % 0.7 % (0-2.0); HEMATOCRIT 42.7 % (32.4-45.2); HEMOGLOBIN 14.5 GM/dL (10.7-15.3); LYMPH % 30.2 % (8-40); MCH 27.5 pg (25.7-33.7); MCHC 33.9 g/dl (32.0-36.0); MEAN CELL VOLUME 81.1 fl (80-96); MEAN PLT VOLUME 8.3 fl (7.5-11.1); MONO % 6.9 % (3.8-10.2); NEUT % 61.2 % (42.8-82.8); PLATELET COUNT 209 K/MM3 (134-434); RBC 5.26 M/mm3 (3.60-5.2); RDW 16.4 % (11.6-15.6); WHITE BLOOD COUNT 6.4 K/mm3 (4.0-10.0)
[2018-09-21 13:15] LABS: ALBUMIN 4.2 g/dl (3.4-5.0); ALK PHOS 82 U/L (45-117); ANION GAP 8 MMOL/L (8-16); BILIRUBIN,DIRECT 0.1 mg/dL (0.0-0.2); BILIRUBIN,TOTAL 0.6 mg/dL (0.2-1); BLOOD UREA NITROGEN 24 mg/dL (7-18); CALCIUM 9.8 mg/dL (8.5-10.1); CHLORIDE 104 mmol/L (98-107); CO2 27 mmol/L (21-32); CREATININE 0.9 mg/dL (0.55-1.3); GLUCOSE,RANDOM 98 mg/dL (74-106); MAGNESIUM 2.1 mg/dL (1.8-2.4); POTASSIUM 4.2 mmol/L (3.5-5.1); SGOT/AST 16 U/L (15-37); SGPT/ALT 23 U/L (13-61); SODIUM 139 mmol/L (136-145); TOT PROT 7.1 g/dl (6.4-8.2); TOT PROT 7.4 g/dl (6.4-8.2)
--- NOTE | 2018-09-21 15:47 | ECHO ---
Name: PRADEEP MARIN Exam:Adult Echocardiogram Study Date: 09/21/2018 11:26 AM Age: 73 yrs Reason For Study: SYNCOPE, HTN, SOB Height: 63 in Weight: 167 lb BSA: 1.8 m2 MMode/2D Measurements & Calculations IVSd: 1.1 cm Ao root diam: 3.1 cm LVIDd: 2.8 cm ACS: 1.9 cm LVIDs: 2.1 cm LVPWd: 1.5 cm EDV(Teich): 29.3 ml LVOT diam: 2.0 cm ESV(Teich): 13.7 ml Doppler Measurements & Calculations Med Peak E' Adilson: 7.1 cm/sec Lat Peak E' Adilson: 8.8 cm/sec Procedure A complete two-dimensional transthoracic echocardiogram was performed (2D, M-mode, Doppler and color flow Doppler). The study was technically difficult with many images being suboptimal in quality. Left Ventricle The left ventricular size, thickness and function are normal. Ejection Fraction = 60-65%. The left ve ntricular ejection fraction is normal. Regional wall motion abnormalities cannot be excluded due to limited visualization. Right Ventricle The right ventricle is normal in size and function. Atria Normal left and right atrial size and function. Mitral Valve There is no mitral regurgitation noted. Tricuspid Valve There is trace tricuspid regurgitation. There was insufficient TR detected to calculate RV systolic p ressure. Aortic Valve No hemodynamically significant valvular aortic stenosis. No aortic regurgitation is present. Pulmonic Valve The pulmonic valve is not well visualized. Great Vessels The aortic root is normal size. Pericardium/Pleura There is no pericardial effusion. Interpretation Summary The study was technically difficult with many images being suboptimal in quality. The left ventricular size, thickness and function are normal The right ventricle is normal in size and function. There is trace tricuspid regurgitation. MD Kalin Shelton 09/21/2018 03:46 PM
[2018-09-21] MEDS ORDERED: PORTA CATH FLUSH 10 ML IVPUSH ONE (17:42)
[2018-09-21 17:44] VITALS: BP 129/68; PULSE 60
== END 2018-09-21 14:45 | disposition home or self-care (01) ==
LOC: JONCCHEMO 07:16 → J7W 14:05 → JONCCHEMO 14:45
PROVIDERS: ATTEND Internal Medicine Hematology & Oncology
DX: Z51.11 Encounter for antineoplastic chemotherapy (principal); C50.919 Malignant neoplasm of unspecified site of unspecified female breast
CPT/HCPCS: 36415; 80053; 80076; 83735; 85025; 93306-TC; 96413; J9355

== ENCOUNTER 2018-09-25 08:19 | Day surgery (SDC) | payer OTHER, BC ==
[2018-09-14 12:40] VITALS: BMI 28.8
[2018-09-25] MEDS ORDERED: ceFAZolin SODIUM 1 GM VIAL ONE ×3 (09:08→10:01)
[2018-09-25] MEDS ORDERED: GENTAMICIN SO4 80 MG/2 ML VIAL ONE (09:08)
[2018-09-25] MEDS ORDERED: MIDAZOLAM HCL 2 MG/2 ML SINGLE DOSE VIAL ONE (09:40)
[2018-09-25] MEDS ORDERED: fentaNYL CITRATE 250 MCG/5 ML VIAL ONE (09:40)
[2018-09-25] MEDS ORDERED: KETOROLAC TROMETHAMINE 30 MG/1 ML VIAL ONE (09:42)
[2018-09-25] MEDS ORDERED: LIDOCAINE HCL/PF 2% SDV 5ML VIAL ONE (09:42)
[2018-09-25] MEDS ORDERED: ONDANSETRON 4 MG/2 ML VIAL ONE (09:42)
[2018-09-25] MEDS ORDERED: DEXAMETHASONE SOD PHOSPHATE 4 MG/1 ML VIAL ONE (09:42)
[2018-09-25] MEDS ORDERED: HALOPERIDOL LACTATE 5 MG/ML ONE (09:48)
[2018-09-25] MEDS ORDERED: ePHEDrine SULFATE 50 MG/1 ML AMPULE ONE (10:17)
[2018-09-25] MEDS ORDERED: SEVOFLURANE 250 ML BTL ONE (11:55)
[2018-09-25] MEDS ORDERED: PROPOFOL 20 ML ONE (12:08)
--- NOTE | 2018-09-25 12:54 | SURG ---
Surgery Portrait Painter Note Portrait Painter: Alexx Claudio PA-C Date of Service: 09/25/18 Diagnosis: Breast cancer Procedure: Bilateral breast reconstruction with Bilateral capsulectomy, exchange of expanders for implants. I was present for the entirety of the operative procedure. For further detail, please refer to operative report.
[2018-09-25] MEDS ORDERED: ONDANSETRON 4 MG/2 ML VIAL IVPUSH PRN (12:56)
[2018-09-25] MEDS ORDERED: PROMETHAZINE HCL 25 MG/1 ML VIAL IVPUSH PRN (12:56)
[2018-09-25] MEDS ORDERED: oxyCODONE HCL 5 MG TABLET PO PRN ×4 (12:56→13:03)
[2018-09-25] MEDS ORDERED: ONDANSETRON 4 MG/2 ML VIAL IVPB PRN (13:03)
--- NOTE | 2018-09-25 13:13 | OP ---
Operative Note - Note: Operative Date: 09/25/18 Pre-Operative Diagnosis: bilateral absence of breasts Operation: bilateral capsulectmy with implant exchange Implants: Natrelle SRX 750 x 2 Post-Operative Diagnosis: Same as Pre-op Surgeon: Dameon Sanchez Log Operations Coordinator: Alexx Claudio Anesthesia: General Operative Report Dictated: Yes
[2018-09-25] MEDS ORDERED: LACTATED RINGERS SOLUTION 1,000 ML IV SCH (13:15)
[2018-09-25 15:06] VITALS: TEMP 97.5
[2018-09-25 15:11] VITALS: BP 136/70; PULSE 70
--- NOTE | 2018-09-26 08:52 | OP ---
DATE OF OPERATION: 09/25/2018 TITLE OF PROCEDURE: Bilateral reconstructed breast periprosthetic capsulectomy with removal of existing tissue director channel implants with replacement of implants with silicone gel permanent implants. ATTENDING SURGEON: Dameon Sanchez MD CUSTOMER MANAGER: Alexx Claudio PA-C PREOPERATIVE DIAGNOSIS: Breast cancer status post bilateral mastectomy with tissue director channel placements bilaterally. POSTOPERATIVE DIAGNOSIS: Breast cancer status post bilateral mastectomy with tissue director channel placements bilaterally. The patient is marked in the holding area for incision along the existing mastectomy scars. The extents of the capsulotomies are marked. Patient is awake and aware of the surgical plan, risks, benefits, alternatives, and limitations. She is also awake, aware of incisions and resulting scars. Sequential compression stockings are applied bilaterally. BRODERICK hose are applied bilaterally. She was brought to the operating room, placed in supine position. Position is carefully checked by surgical and anesthesia teams. All limbs and pressure points are carefully padded. A pillow is placed below the knees. The sequential compression machine is turned on. The patient is prepped with a dual prep using Betadine scrub and ChloraPrep prep. She received 2 g of IV Ancef prior to incision. After prepping and draping, a timeout is called. Patient, procedure, sites, and sides are verified. The procedure commences on the patient's left side. Incision is made along the mastectomy scar and carried down to the level of the periprosthetic capsule. A stair-step incision to the capsule is made cephalad to the skin scar. The capsulotomy is then performed, and the tissue director channel is accessed. The tissue director channel is evacuated of fluid and removed from the capsule. A lateral capsulectomy is then performed in order to medialize the position of the implant. This is an elliptical, 2-cm-width excision. Hemostasis then meticulously achieved, and the edges of the capsule are freed and dissected for a tension-free closure. This closure is performed with a series of interrupted [id number] 2-0 PDS suture, followed by a running 2-0 PDS suture. After which, capsulotomies were then performed in a checkerboard fashion on the inferior pole of the capsule and medially and superiorly to allow for a rounder, taller implant. After hemostasis meticulously achieved, a style Lilia Ruth style SRX-750 sizer is placed into the pocket. It is determined that minimal tension is required for closure of the capsule with good fill and esthetic outcome. With this, the skin is tailor tacked, and attention is then directed towards the contralateral right side. On the right side, a mirror-image procedure is performed with additional attention paid towards the inferomedial and superomedial aspects of the capsule as these were not as well expanded. Once these capsulotomies were performed, the remainder of the lateral capsulectomy and repair is performed. This pocket is copiously irrigated with triple antibiotic solution. Standard triple antibiotic solution is used. At this point, using the Cabezas funnel and a 1-touch technique and new sterile gloves, an engageSimplye-style SRX-750 implant is brought onto the field, rinsed in triple antibiotic solution, placed into the funnel, and then placed into the cavity, oriented properly. This is done bilaterally with the skin tailor tacked and the patient in a seated upright position. There is excellent symmetry of size and shape and position of the implants. Closure is then performed. The capsule is able to be closed without significant tension with a running locking 3-0 Monocryl suture. The deep fatty tissue is closed with a running 3-0 Monocryl suture. The dermis is closed with a series of interrupted, buried, deep dermal 3-0 Monocryl suture, and the skin is closed with a running subcuticular 3-0 Monocryl suture. Several 5-0 nylon sutures are used to align the skin edges as needed. This closure is performed bilaterally in identical fashion. The wounds are dressed with Steri-Strips, 4 x 4 gauze, Hypafix tape, and a surgical bra. Patient awoken from anesthesia without complication. Ashely [id number]
--- NOTE | 2018-09-27 15:51 | PATH ---
Surgical Pathology Report Patient Name: PRADEEP MARIN [facility]. Rec. #: [id number] /Age/Gender: 1945 (Age: 73) / F Account: [id number] Location: [facility] Taken: 09/25/2018 Received: 09/25/2018 Reported: 09/27/2018 Physicians: Dameon Sanchez Specimen(s) Received A: LEFT BREAST CAPSULE B: LEFT BREAST EAP CONSULTANT C: RIGHT BREAST EAP CONSULTANT D: RIGHT BREAST CAPSULE Clinical History Breast cancer Final Diagnosis A. LEFT BREAST CAPSULE, EXCISION: FIBROADIPOSE TISSUE WITH FOCAL MILD CHRONIC INFLAMMATION AND HISTIOCYTIC REACTION WITH MULTINUCLEATED GIANT CELLS, CONSISTENT WITH CAPSULE. B. LEFT BREAST EAP CONSULTANT, REMOVAL: CONSISTENT WITH BREAST EAP CONSULTANT. GROSS EXAMINATION ONLY. C. RIGHT BREAST EAP CONSULTANT, REMOVAL: CONSISTENT WITH BREAST EAP CONSULTANT. GROSS EXAMINATION ONLY. D. RIGHT BREAST CAPSULE, EXCISION: FIBROADIPOSE TISSUE WITH CHRONIC INFLAMMATION AND HISTIOCYTIC REACTION WITH MULTINUCLEATED GIANT CELLS, CONSISTENT WITH CAPSULE. Electronically Signed Laurence Patel M.D. Gross Description A. Received in formalin labeled "left breast capsule," is a 3.0 x 1.8 x 0.3 cm portion of fibrous tissue with attached fat, consistent with a portion of fibrous capsule. No discrete lesions are identified. Parking Attendant sections are submitted in one cassette. B. Received fresh labeled "left breast windows 7 deployment lead," is a 15.0 x 12.5 x 4.0 cm coello foreign body, consistent with a breast tissue windows 7 deployment lead. No soft tissue is present. No sections are submitted, gross only. C. Received fresh labeled "right breast windows 7 deployment lead," is a 15.0 x 12.5 x 4.0 cm coello foreign body, consistent with a breast tissue tender. No soft tissue is present. No sections are submitted, gross only. D. Received in formalin labeled "right breast capsule," are 2 coello portions of fibrous capsule with attached fat measuring 4.0 x 2.3 x 0.5 cm in aggregate. No discreet lesions are identified. Parking Attendant sections are submitted in one cassette. DL/09/26/2018 saudi/09/26/2018
== END 2018-09-25 15:15 | disposition home or self-care (01) ==
LOC: FASU 08:19
PROVIDERS: ATTEND Plastic Surgery
PROC: 0HRV0JZ Replacement of Bilateral Breast with Synthetic Substitute, Open Approach (ICD-10-PCS; 2018-09-25)
PROC: 0HPU0NZ Removal of Tissue Expander from Left Breast, Open Approach (ICD-10-PCS; 2018-09-25)
PROC: 0HPT0NZ Removal of Tissue Expander from Right Breast, Open Approach (ICD-10-PCS; 2018-09-25)
PROC: 0HRV0JZ Replacement of Bilateral Breast with Synthetic Substitute, Open Approach (ICD-10-PCS; 2018-09-25)
PROC: 0HPU0JZ Removal of Synthetic Substitute from Left Breast, Open Approach (ICD-10-PCS; principal; 2018-09-25 10:22)
PROC: 0HPT0JZ Removal of Synthetic Substitute from Right Breast, Open Approach (ICD-10-PCS; 2018-09-25 10:22)
DX: C50.919 Malignant neoplasm of unspecified site of unspecified female breast (principal); Z90.13 Acquired absence of bilateral breasts and nipples
CPT/HCPCS: 88300-TC; 88304-TC; 94760

== ENCOUNTER 2018-10-03 12:19 | Day surgery (SDC) | payer OTHER, BC ==
[2018-10-03 13:10] VITALS: BMI 24.2
--- NOTE | 2018-10-03 14:06 | PDOC ---
History of Present Illness - General Chief Complaint: Revisit,Radiology Variance Stated Complaint: LOLIS BREAST ULTRASOUND Time Seen by Provider: 10/03/18 13:15 History Source: Patient Exam Limitations: No Limitations - History of Present Illness Initial Comments: 10/03/18 14:23 The patient is a 73-year-old female past medical history of breast cancer status post bilateral mastectomy, now with bilateral breast implants, who presents for evaluation of a bruise to her right breast. Patient states she contacted Dr. Guerrero who told her to come to the ER for a breast ultrasound. Denies fevers, chills, chest pain, difficulty breathing, nausea, vomiting and diarrhea. Past History - Travel Traveled outside of the country in the last 30 days: No Close contact w/someone who was outside of country & ill: No - Past Medical History Allergies/Adverse Reactions: Allergies Allergy/AdvReac Type Severity Reaction Status Date / Time erythromycin base Allergy Intermediate Difficulty Verified 10/03/18 13:01 Breathing Home Medications: Ambulatory Orders Cetirizine HCl [Zyrtec -] 10 mg PO ASDIR PRN 11/04/15 Glucosamine Sulfate Dipot Chlr [Glucosamine] 1,000 mg PO DAILY 11/04/15 Cholecalciferol (Vitamin D3) [Vitamin D3] 4,000 iu PO DAILY 12/20/17 Fluticasone/Salmeterol [Advair 250-50 Diskus] 1 each IH ASDIR PRN 12/27/17 Sodium Chloride Nasal Marion [Frierson Marion Nasal Marion -] 2 spray NS BID #1 bottle 01/25/18 Anastrozole [Arimidex] 1 mg PO DAILY 09/14/18 Atorvastatin Ca [Lipitor] 40 mg PO HS 09/14/18 Calcium Carb, Citrate/Vit D3 [Calcium + D3 ER Tablet] 1 each PO DAILY 09/14/18 Paroxetine HCl [Paxil Cr] 25 mg PO DAILY 09/14/18 Spironolact/Hydrochlorothiazid [Spironolactone-Hctz 25-25 Tab] 1 each PO DAILY 09/14/18 Trastuzumab [Herceptin -] 150 mg IVPB ASDIR 09/14/18 Anemia: No Asthma: Yes (allergy related) Cancer: Yes (RT BREAST CA 2018,SX,CHEMO) Cardiac Disorders: No CVA: No COPD: No CHF: No Dementia: No Diabetes: No GI Disorders: Yes (reflux,diverticultis) Disorders: No HTN: Yes Hypercholesterolemia: Yes Liver Disease: No Seizures: No Thyroid Disease: No - Surgical History Abdominal Surgery: Yes Appendectomy: Yes Cardiac Surgery: No Cholecystectomy: No Lung Surgery: No Neurologic Surgery: No Orthopedic Surgery: Yes (RIGHT knee arthroscopy,LEFT KNEE SX AFTER FX PATELLA) - Suicide/Smoking/Psychosocial Hx Smoking History: Unknown if ever smoked Have you smoked in the past 12 months: No Number of Cigarettes Smoked Daily: 2 If you are a former smoker, when did you quit?: 30 Years ago Hx Alcohol Use: Yes (SOCIALLY,2-3/week) Drug/Substance Use Hx: No Substance Use Type: Alcohol Hx Substance Use Treatment: No Review of Systems - Review of Systems Able to Perform ROS?: Yes Comments:: 10/03/18 14:24 CONSTITUTIONAL: Absent: fever, chills, diaphoresis, generalized weakness, malaise, loss of appetite HEENT: Absent: rhinorrhea, nasal congestion, throat pain, throat swelling, difficulty swallowing, mouth swelling, ear pain, eye pain, visual Changes CARDIOVASCULAR: Absent: chest pain, loss of consciousness, palpitations, irregular heart rate, peripheral edema RESPIRATORY: Absent: cough, shortness of breath, dyspnea with exertion, orthopnea, wheezing, stridor, hemoptysis GASTROINTESTINAL: Absent: abdominal pain, abdominal distension, nausea, vomiting, diarrhea, constipation, melena, hematochezia GENITOURINARY: Absent: dysuria, frequency, urgency, hesitancy, hematuria, flank pain, genital pain MUSCULOSKELETAL: Absent: myalgia, arthralgia, joint swelling SKIN: Prsent: bruising to the R breast. Absent: rash, itching, pallor HEMATOLOGIC/IMMUNOLOGIC: Absent: easy bleeding, easy bruising, lymphadenopathy, frequent infections ENDOCRINE: Absent: unexplained weight gain, unexplained weight loss, heat intolerance, cold intolerance NEUROLOGIC: Absent: headache, focal weakness or paresthesias, dizziness, unsteady gait, seizure, mental status changes, bladder or bowel incontinence PSYCHIATRIC: Absent: anxiety, depression, suicidal or homicidal ideation, hallucinations. Is the patient limited Turkish proficient: No *Physical Exam - Vital Signs Last Vital Signs Temp Pulse Resp BP Pulse Ox 98.1 F 63 18 136/70 99 10/03/18 13:08 10/03/18 13:08 10/03/18 13:08 10/03/18 13:08 10/03/18 13:08 - Physical Exam Comments: 10/03/18 14:25 GENERAL: Well developed, well nourished. Awake and alert. No acute distress. HEENT: Normocephalic, atraumatic. PERRLA, EOMI. No conjunctival pallor. Sclera are non- icteric. Moist mucous membranes. Oropharynx is clear. NECK: Supple. Full ROM. No JVD. Carotid pulses 2+ and symmetric, without bruits. No thyromegaly. No lymphadenopathy. BREAST: Bruising to the 2 o'clock to 6 oclock position on the R breast. CARDIOVASCULAR: Regular rate and rhythm. No murmurs, rubs, or gallops. Distal pulses are 2+ and symmetric. PULMONARY: No evidence of respiratory distress. Lungs clear to auscultation bilaterally. No wheezing, rales or rhonchi. ABDOMINAL: Soft. Non-tender. Non-distended. No rebound or guarding. No organomegaly. Normoactive bowel sounds. MUSCULOSKELETAL Normal range of motion at all joints. No bony deformities or tenderness. No CVA tenderness. EXTREMITIES: No cyanosis. No clubbing. No edema. No calf tenderness. SKIN: Warm and dry. Normal capillary refill. No rashes. No jaundice. NEUROLOGICAL: Alert, awake, appropriate. Cranial nerves 2-12 intact. No deficits to light touch and temperature in face, upper extremities and lower extremities. No motor deficits in the in face, upper extremities and lower extremities. Normoreflexic in the upper and lower extremities. Normal speech. Toes are down- going bilaterally. Gait is normal without ataxia. PSYCHIATRIC: Cooperative. Good eye contact. Appropriate mood and affect. Moderate Sedation - Procedure Monitoring Vital Signs: Procedure Monitoring Vital Signs Temperature 98.1 F 10/03/18 13:08 Pulse Rate 63 10/03/18 13:08 Respiratory Rate 18 10/03/18 13:08 Blood Pressure 136/70 10/03/18 13:08 O2 Sat by Pulse Oximetry (%) 99 10/03/18 13:08 ED Treatment Course - RADIOLOGY Radiology Studies Ordered: Category Date Time Status BREAST US BILATERAL COMPLETE [US] Stat Ultrasound 10/03/18 13:13 Taken Medical Decision Making - Medical Decision Making 10/03/18 14:26 The patient is a 73-year-old female who presents to the ER today for an evaluation of fluid collection to her right breast status post implant last week. On exam significant bruising to 2 to 6 o'clock position of the right breast. B/L breast Ultrasound shows increased fluid from the 2:00 to 4 o'clock position on the right breast. Her Dr. Sanchez, patient to go to the OR today for evaluation of possible hematoma behind the implant. Preop labs and EKG ordered Patient to go to the OR. *DC/Admit/Observation/Transfer Diagnosis at time of Disposition: Hematoma - Discharge Dispostion Condition at time of disposition: Stable Decision to Admit order: Yes - Referrals - Patient Instructions - Post Discharge Activity
[2018-10-03 14:35] LABS: BASO % 0.9 % (0-2.0); EOS % 2.6 % (0-4.5); HEMOGLOBIN 12.2 GM/dL (10.7-15.3); LYMPH % 24.8 % (8-40); MCH 27.5 pg (25.7-33.7); MCHC 33.1 g/dl (32.0-36.0); MEAN CELL VOLUME 83.1 fl (80-96); MEAN PLT VOLUME 8.2 fl (7.5-11.1); MONO % 8.3 % (3.8-10.2); NEUT % 63.4 % (42.8-82.8); PLATELET COUNT 307 K/MM3 (134-434); RBC 4.46 M/mm3 (3.60-5.2); WHITE BLOOD COUNT 7.8 K/mm3 (4.0-10.0)
[2018-10-03 15:13] LABS: ALBUMIN 4.2 g/dl (3.4-5.0); ALK PHOS 90 U/L (45-117); ANION GAP 8 MMOL/L (8-16); BILIRUBIN,TOTAL 1.6 mg/dL (0.2-1); BLOOD UREA NITROGEN 17 mg/dL (7-18); CALCIUM 10.4 mg/dL (8.5-10.1); CHLORIDE 102 mmol/L (98-107); CO2 28 mmol/L (21-32); CREATININE 0.8 mg/dL (0.55-1.3); GLUCOSE,RANDOM 104 mg/dL (74-106); POTASSIUM 4.2 mmol/L (3.5-5.1); SGOT/AST 25 U/L (15-37); SGPT/ALT 22 U/L (13-61); SODIUM 138 mmol/L (136-145); TOT PROT 7.3 g/dl (6.4-8.2)
[2018-10-03 15:37] LABS: INR 1.13 (0.83-1.09); PROTHROMBIN TIME (PATIENT) 13.4 SEC (9.7-13.0)
--- NOTE | 2018-10-03 15:37 | EKG ---
Test Reason : Blood Pressure : / mmHG Vent. Rate : 063 BPM Atrial Rate : 063 BPM P-R Int : 152 ms QRS Dur : 078 ms QT Int : 384 ms P-R-T Axes : 044 -12 037 degrees QTc Int : 392 ms NORMAL SINUS RHYTHM NORMAL ECG WHEN COMPARED WITH ECG OF 23-JAN-2018 14:55, NONSPECIFIC T WAVE ABNORMALITY NOW EVIDENT IN ANTERIOR LEADS Confirmed by Wilmer Lipscomb MD ([id number]) on 10/03/2018 3:37:33 PM Referred By: BERNY Confirmed By:Wilmer Lipscomb MD
[2018-10-03] MEDS ORDERED: BUPIVACAINE HCL/PF 0.25% (2.5MG/ML) 10 ML VIAL ONE ×2 (16:27)
[2018-10-03] MEDS ORDERED: GENTAMICIN SO4 80 MG/2 ML VIAL ONE ×2 (16:27→17:24)
[2018-10-03] MEDS ORDERED: ceFAZolin SODIUM 1 GM VIAL ONE ×3 (16:27→17:24)
--- NOTE | 2018-10-03 16:30 | PN ---
Progress Note (short form) - Note Progress Note: Patient referred to ER today after post -op evaluation demonstrates an enlarged right breast reconstruction with significant echymosis. Minimal pain, no fever. ER sonogram confirms bilateral hematoma, but far more significant on the right. Left side is clinically fine. Plan is for OR evacuation of hematoma on the right with washout. Depending on the comparison of the sides after the evacuation, i will decide whether it is indicated to open the left side. i have discussed all the RBA to the procedure with the patient and she understands and agrees to proceed.
[2018-10-03] MEDS ORDERED: PROPOFOL 20 ML ONE (16:45)
[2018-10-03] MEDS ORDERED: ceFAZolin SODIUM 1 GM VIAL IVPB ONE ×2 (16:55→17:30)
[2018-10-03] MEDS ORDERED: KETOROLAC TROMETHAMINE 30 MG/1 ML VIAL ONE (17:05)
[2018-10-03] MEDS ORDERED: DEXAMETHASONE SOD PHOSPHATE 4 MG/1 ML VIAL ONE (17:06)
[2018-10-03] MEDS ORDERED: BACITRACIN 50,000 UNITS VIAL TP ONE (17:30)
[2018-10-03] MEDS ORDERED: GENTAMICIN SO4 80 MG/2 ML VIAL IVPB ONE (17:30)
[2018-10-03] MEDS ORDERED: PROMETHAZINE HCL 25 MG/1 ML VIAL IVPUSH PRN (18:18)
[2018-10-03] MEDS ORDERED: oxyCODONE HCL 5 MG TABLET PO PRN ×2 (18:18→18:22)
[2018-10-03] MEDS ORDERED: ONDANSETRON 4 MG/2 ML VIAL IVPUSH PRN (18:18)
[2018-10-03] MEDS ORDERED: ONDANSETRON 4 MG/2 ML VIAL IVPB PRN (18:22)
[2018-10-03] MEDS ORDERED: LACTATED RINGERS SOLUTION 1,000 ML IV SCH (18:30)
[2018-10-03 19:27] VITALS: TEMP 97.8
[2018-10-03 19:52] VITALS: BP 134/75; PULSE 79
--- NOTE | 2018-10-09 11:59 | OP ---
DATE OF OPERATION: 10/03/2018 TITLE OF PROCEDURE: 1. Right breast capsulotomy. 2. Right breast evacuation of postoperative hematoma. ATTENDING SURGEON: Ten Guerra MD ASSISTANTS: There were no assistants. ANESTHESIA: General endotracheal anesthesia. PREOPERATIVE DIAGNOSIS: Capsular pain on the right breast status post right breast reconstruction with right breast postoperative hematoma. The patient had been seen in the holding area, counseled on all risks, benefits and alternatives to the procedure, understands and agrees to proceed. Marked on the appropriate side. It is discussed with the patient that the left side would be addressed only if there was a notable asymmetry after operating on the patient's right side. She understands. Brought to the operating room. Placed in a supine position. She was given 2 g of Ancef preoperatively. Prepped and draped in standard surgical fashion after which the sequential compression stockings and BRODERICK hose had been applied. The right breast mastectomy wound incision is opened. Dissection carried down to the level of the periprosthetic capsule. A capsulotomy is performed in a stairstep fashion not directly underneath the skin flaps. The prosthesis is removed from the capsule and at this point a 500-mL hematoma is able to be evacuated. The wound is pulse lavaged. Hemostasis meticulously achieved in multiple areas of the scored capsule. The wound is copiously irrigated with triple-antibiotic solution. Hemostasis is meticulously assured. The implant is rewashed in triple-antibiotic solution. With new gloves and a Cabezas funnel using a no-touch technique the existing implant is replaced into the pocket. The capsule is repaired with a running 3-0 Monocryl suture. The deep fat of the breast mastectomy flap is closed with a running 3-0 Monocryl suture. The dermis approximated with a series of interrupted buried deep dermal 3-0 Monocryl suture followed by a running subcuticular 3-0 Monocryl suture. The wound is dressed with Steri-Strips. Wound care instructions given. The patient is given a compressive dressing, transferred to recovery without complication. TEN GUERRA M.D. [id number]
== END 2018-10-03 19:52 | disposition home or self-care (01) ==
LOC: JOR 12:19 → JASUSAT 14:28
PROVIDERS: ATTEND Dermatology
PROC: 0J960ZZ Drainage of Chest Subcutaneous Tissue and Fascia, Open Approach (ICD-10-PCS; 2018-10-03)
PROC: 0HNT0ZZ Release Right Breast, Open Approach (ICD-10-PCS; principal; 2018-10-03 16:00)
DX: L76.32 Postprocedural hematoma of skin and subcutaneous tissue following other procedure (principal); Z90.13 Acquired absence of bilateral breasts and nipples; Z85.3 Personal history of malignant neoplasm of breast
CPT/HCPCS: 36415; 76641-TC-50; 80053; 85025; 85610; 86850; 86900; 86901; 93005; 93010; 94760; 99283-25

== ENCOUNTER 2018-10-12 07:19 | Day surgery (SDC) | payer OTHER, BC ==
[2018-10-12] MEDS ORDERED: ACETAMINOPHEN 325 MG TABLET (FP) PO ONE ×2 (10:00)
[2018-10-12] MEDS ORDERED: DIPHENHYDRAMINE 50 MG in SODIUM CHLORIDE 50 ML IVPB ONE (10:00)
[2018-10-12] MEDS ORDERED: SODIUM CHLORIDE IVPB ONE (10:30)
[2018-10-12] MEDS ORDERED: TRASTUZUMAB IVPB ONE (10:30)
[2018-10-12 13:39] LABS: BASO % 0.5 % (0-2.0); EOS % 1.6 % (0-4.5); HEMATOCRIT 39.2 % (32.4-45.2); HEMOGLOBIN 12.3 GM/dL (10.7-15.3); LYMPH % 31.4 % (8-40); MCH 26.3 pg (25.7-33.7); MCHC 31.5 g/dl (32.0-36.0); MEAN CELL VOLUME 83.4 fl (80-96); MEAN PLT VOLUME 8.3 fl (7.5-11.1); MONO % 9.2 % (3.8-10.2); NEUT % 57.3 % (42.8-82.8); PLATELET COUNT 260 K/MM3 (134-434); RDW 17.4 % (11.6-15.6); WHITE BLOOD COUNT 5.4 K/mm3 (4.0-10.0)
[2018-10-12 14:10] LABS: BILIRUBIN,DIRECT 0.2 mg/dL (0.0-0.2); BILIRUBIN,TOTAL 0.6 mg/dL (0.2-1); MAGNESIUM 2.3 mg/dL (1.8-2.4); TOT PROT 7.3 g/dl (6.4-8.2)
[2018-10-12 14:24] LABS: ALK PHOS 83 U/L (45-117); ANION GAP 7 MMOL/L (8-16); BILIRUBIN,TOTAL 0.6 mg/dL (0.2-1); BLOOD UREA NITROGEN 15 mg/dL (7-18); CALCIUM 10.1 mg/dL (8.5-10.1); CHLORIDE 102 mmol/L (98-107); CO2 32 mmol/L (21-32); CREATININE 0.8 mg/dL (0.55-1.3); GLUCOSE,RANDOM 96 mg/dL (74-106); POTASSIUM 4.2 mmol/L (3.5-5.1); SGOT/AST 13 U/L (15-37); SGPT/ALT 21 U/L (13-61); SODIUM 141 mmol/L (136-145)
[2018-10-12 15:03] VITALS: TEMP 98
[2018-10-12 16:24] VITALS: BP 125/75; PULSE 70
== END 2018-10-12 15:15 | disposition home or self-care (01) ==
LOC: JONCCHEMO 07:19 → J7W 14:43 → JONCCHEMO 15:15
PROVIDERS: ATTEND Internal Medicine Hematology & Oncology
DX: Z51.11 Encounter for antineoplastic chemotherapy (principal); C50.919 Malignant neoplasm of unspecified site of unspecified female breast
CPT/HCPCS: 36415; 80053; 80076; 83735; 85025; 96413; J9355

== ENCOUNTER 2018-11-09 07:11 | Day surgery (SDC) | payer OTHER, BC ==
[~2018-11-09 07:11] MED LIST changes: -DEXAMETHASONE IVPB ONE; +DIPHENHYDRAMINE 50 MG in SODIUM CHLORIDE 50 ML IVPB ONE; -DIPHENHYDRAMINE IVPB ONE; -ONDANSETRON IVPB ONE; -PACLITAXEL 150 MG in SODIUM CHLORIDE 250 ML IVPB ONE; -PERTUZUMAB 420 MG in SODIUM CHLORIDE 250 ML IVPB ONE; -[UNRECOGNIZED DRUG - OTHER] IVPB ONE
[2018-11-09] MEDS ORDERED: ACETAMINOPHEN 325 MG TABLET (FP) PO ONE (08:00)
[2018-11-09] MEDS ORDERED: DIPHENHYDRAMINE 50 MG in SODIUM CHLORIDE 50 ML IVPB SCH (08:00)
[2018-11-09] MEDS ORDERED: SODIUM CHLORIDE IVPB ONE (08:30)
[2018-11-09] MEDS ORDERED: TRASTUZUMAB IVPB ONE (08:30)
[2018-11-09 12:08] LABS: EOS % 1.2 % (0-4.5); HEMATOCRIT 43.2 % (32.4-45.2); HEMOGLOBIN 14.3 GM/dL (10.7-15.3); LYMPH % 29.9 % (8-40); MCH 27.7 pg (25.7-33.7); MEAN PLT VOLUME 8.4 fl (7.5-11.1); MONO % 7.3 % (3.8-10.2); NEUT % 60.6 % (42.8-82.8); PLATELET COUNT 268 K/MM3 (134-434); RBC 5.14 M/mm3 (3.60-5.2); RDW 16.6 % (11.6-15.6); WHITE BLOOD COUNT 5.7 K/mm3 (4.0-10.0)
[2018-11-09 12:31] LABS: ALBUMIN 4.1 g/dl (3.4-5.0); ALK PHOS 85 U/L (45-117); ANION GAP 4 MMOL/L (8-16); BILIRUBIN,TOTAL 0.6 mg/dL (0.2-1); BLOOD UREA NITROGEN 19 mg/dL (7-18); CALCIUM 9.6 mg/dL (8.5-10.1); CHLORIDE 102 mmol/L (98-107); CO2 30 mmol/L (21-32); CREATININE 0.8 mg/dL (0.55-1.3); GLUCOSE,RANDOM 97 mg/dL (74-106); SGOT/AST 18 U/L (15-37); SGPT/ALT 30 U/L (13-61); SODIUM 136 mmol/L (136-145); TOT PROT 7.5 g/dl (6.4-8.2)
[2018-11-09] MEDS ORDERED: ALTEPLASE 2 MG VIAL CVP ONE (14:00)
[2018-11-09 15:49] VITALS: TEMP 98.3
[2018-11-09 15:54] VITALS: BP 133/64; PULSE 67
== END 2018-11-09 15:45 | disposition home or self-care (01) ==
LOC: JONCCHEMO 07:11 → J7W 13:23 → JONCCHEMO 15:45
PROVIDERS: ATTEND Internal Medicine Hematology & Oncology
DX: Z51.11 Encounter for antineoplastic chemotherapy (principal); C50.919 Malignant neoplasm of unspecified site of unspecified female breast
CPT/HCPCS: 36415; 80053; 85025; 96413; J2997; J9355

== ENCOUNTER 2018-12-01 07:11 | Day surgery (SDC) | payer OTHER, BC ==
[~2018-12-01 07:11] MED LIST changes: -DIPHENHYDRAMINE 50 MG in SODIUM CHLORIDE 50 ML IVPB ONE
[2018-12-01] MEDS ORDERED: SODIUM CHLORIDE IVPB ONE (10:00)
[2018-12-01] MEDS ORDERED: ACETAMINOPHEN 325 MG TABLET (FP) PO ONE (10:00)
[2018-12-01] MEDS ORDERED: TRASTUZUMAB IVPB ONE (10:00)
[2018-12-01 10:59] LABS: BASO % 0.4 % (0-2.0); EOS % 1.3 % (0-4.5); HEMATOCRIT 37.4 % (32.4-45.2); HEMOGLOBIN 12.3 GM/dL (10.7-15.3); LYMPH % 29.9 % (8-40); MCH 27.4 pg (25.7-33.7); MCHC 32.8 g/dl (32.0-36.0); MEAN CELL VOLUME 83.8 fl (80-96); MEAN PLT VOLUME 8.5 fl (7.5-11.1); MONO % 7.1 % (3.8-10.2); NEUT % 61.3 % (42.8-82.8); PLATELET COUNT 268 K/MM3 (134-434); RBC 4.47 M/mm3 (3.60-5.2); RDW 15.8 % (11.6-15.6); WHITE BLOOD COUNT 5.5 K/mm3 (4.0-10.0)
[2018-12-01 11:15] LABS: ALBUMIN 3.8 g/dl (3.4-5.0); BILIRUBIN,TOTAL 0.4 mg/dL (0.2-1); CALCIUM 9.7 mg/dL (8.5-10.1); CREATININE 0.9 mg/dL (0.55-1.3); MAGNESIUM 2.3 mg/dL (1.8-2.4); POTASSIUM 3.9 mmol/L (3.5-5.1); TOT PROT 6.9 g/dl (6.4-8.2)
[2018-12-01 16:05] VITALS: BP 135/69; PULSE 57; TEMP 99.2
[2018-12-01] MEDS ORDERED: PORTA CATH FLUSH 10 ML IVPUSH ONE (16:05)
== END 2018-12-01 14:00 | disposition home or self-care (01) ==
LOC: JONCCHEMO 07:11 → J7W 11:36 → JONCCHEMO 14:00
PROVIDERS: ATTEND Internal Medicine Hematology & Oncology
DX: Z51.11 Encounter for antineoplastic chemotherapy (principal); C50.111 Malignant neoplasm of central portion of right female breast; C50.011 Malignant neoplasm of nipple and areola, right female breast; Z17.0 Estrogen receptor positive status [ER+]; I10 Essential (primary) hypertension; E78.5 Hyperlipidemia, unspecified; F41.9 Anxiety disorder, unspecified
CPT/HCPCS: 36415; 80053; 83735; 85025; 96413; J9355

== ENCOUNTER 2018-12-22 07:20 | Day surgery (SDC) | payer OTHER, BC ==
[2018-12-22] MEDS ORDERED: ACETAMINOPHEN 325 MG TABLET (FP) PO ONE (10:00)
[2018-12-22] MEDS ORDERED: TRASTUZUMAB IVPB ONE (10:30)
[2018-12-22] MEDS ORDERED: SODIUM CHLORIDE IVPB ONE (10:30)
[2018-12-22 11:35] LABS: BASO % 0.7 % (0-2.0); EOS % 1.4 % (0-4.5); LYMPH % 32.5 % (8-40); MCH 26.2 pg (25.7-33.7); MCHC 31.7 g/dl (32.0-36.0); MEAN CELL VOLUME 82.6 fl (80-96); MEAN PLT VOLUME 8.9 fl (7.5-11.1); MONO % 10.3 % (3.8-10.2); NEUT % 55.1 % (42.8-82.8); RBC 4.97 M/mm3 (3.60-5.2); RDW 15.3 % (11.6-15.6); WHITE BLOOD COUNT 4.5 K/mm3 (4.0-10.0)
[2018-12-22 11:52] LABS: ALBUMIN 3.9 g/dl (3.4-5.0); BILIRUBIN,TOTAL 0.4 mg/dL (0.2-1); CALCIUM 9.4 mg/dL (8.5-10.1); CREATININE 0.9 mg/dL (0.55-1.3); MAGNESIUM 2.3 mg/dL (1.8-2.4); POTASSIUM 3.8 mmol/L (3.5-5.1); TOT PROT 6.8 g/dl (6.4-8.2)
[2018-12-22 12:48] LABS: PLATELET COUNT 208 K/MM3 (134-434)
[2018-12-22 14:36] VITALS: PULSE 57; TEMP 97.5
[2018-12-22 14:47] VITALS: BP 143/73
== END 2018-12-22 13:55 | disposition home or self-care (01) ==
LOC: JONCCHEMO 07:20 → JERBED 12:42 → J7W 12:49 → FM/S 12:49 → JONCCHEMO 13:55
PROVIDERS: ATTEND Internal Medicine Hematology & Oncology
DX: Z51.11 Encounter for antineoplastic chemotherapy (principal); C50.111 Malignant neoplasm of central portion of right female breast; C50.011 Malignant neoplasm of nipple and areola, right female breast; Z17.0 Estrogen receptor positive status [ER+]
CPT/HCPCS: 36415; 80053; 83735; 85025; 96413; J9355

== ENCOUNTER 2019-01-22 06:39 | Day surgery (SDC) | payer OTHER, BC ==
[2019-01-22] MEDS ORDERED: ACETAMINOPHEN 325 MG TABLET (FP) PO ONE (10:00)
[2019-01-22] MEDS ORDERED: TRASTUZUMAB IVPB ONE (10:30)
[2019-01-22] MEDS ORDERED: SODIUM CHLORIDE IVPB ONE (10:30)
[2019-01-22 12:43] LABS: BASO % 0.5 % (0-2.0); EOS % 1.7 % (0-4.5); HEMATOCRIT 41.4 % (32.4-45.2); HEMOGLOBIN 13.4 GM/dL (10.7-15.3); LYMPH % 32.5 % (8-40); MCH 25.9 pg (25.7-33.7); MCHC 32.4 g/dl (32.0-36.0); MEAN PLT VOLUME 8.3 fl (7.5-11.1); MONO % 10.9 % (3.8-10.2); NEUT % 54.4 % (42.8-82.8); PLATELET COUNT 223 K/MM3 (134-434); RBC 5.17 M/mm3 (3.60-5.2); WHITE BLOOD COUNT 4.5 K/mm3 (4.0-10.0)
[2019-01-22 13:58] LABS: ALBUMIN 3.9 g/dl (3.4-5.0); BILIRUBIN,DIRECT 0.1 mg/dL (0.0-0.2); BILIRUBIN,TOTAL 0.5 mg/dL (0.2-1); BLOOD UREA NITROGEN 14.3 mg/dL (7-18); CALCIUM 9.2 mg/dL (8.5-10.1); CREATININE 0.8 mg/dL (0.55-1.3); MAGNESIUM 2.6 mg/dL (1.8-2.4); POTASSIUM 4.5 mmol/L (3.5-5.1); TOT PROT 7.2 g/dl (6.4-8.2)
[2019-01-22 18:29] VITALS: BP 127/67; PULSE 56; TEMP 97.8
== END 2019-01-22 15:30 | disposition home or self-care (01) ==
LOC: JONCCHEMO 06:39 → J7W 13:33 → JONCCHEMO 15:30
PROVIDERS: ATTEND Internal Medicine Hematology & Oncology
DX: Z51.11 Encounter for antineoplastic chemotherapy (principal); C50.011 Malignant neoplasm of nipple and areola, right female breast; Z17.0 Estrogen receptor positive status [ER+]
CPT/HCPCS: 36415; 80048; 80076; 83735; 85025; 96413; J9355

== ENCOUNTER → 2019-02-06 | Day surgery (SDC) | payer OTHER, BC ==
[2019-02-06 11:05] LABS: INR 1.13 (0.83-1.09); PROTHROMBIN TIME (PATIENT) 13.3 SEC (9.7-13.0)
== END | disposition home or self-care (01) ==
LOC: JRADIR 09:26
PROVIDERS: ATTEND Internal Medicine Hematology & Oncology
PROC: 0JPT0WZ Removal of Totally Implantable Vascular Access Device from Trunk Subcutaneous Tissue and Fascia, Open Approach (ICD-10-PCS; principal; 2019-02-06)
DX: Z45.2 Encounter for adjustment and management of vascular access device (principal)
CPT/HCPCS: 36415; 36582; 77001-TC-FY; 85610; C1788

== ENCOUNTER 2019-02-16 05:25 | Day surgery (SDC) | payer OTHER, BC ==
[2019-02-16] MEDS ORDERED: ACETAMINOPHEN 325 MG TABLET (FP) PO ONE (10:00)
[2019-02-16] MEDS ORDERED: SODIUM CHLORIDE IVPB ONE ×2 (10:30→13:30)
[2019-02-16] MEDS ORDERED: TRASTUZUMAB IVPB ONE ×2 (10:30→13:30)
[2019-02-16 11:54] LABS: BASO % 0.7 % (0-2.0); EOS % 1.4 % (0-4.5); HEMATOCRIT 42.3 % (32.4-45.2); HEMOGLOBIN 13.9 GM/dL (10.7-15.3); LYMPH % 38.2 % (8-40); MCH 25.8 pg (25.7-33.7); MCHC 32.8 g/dl (32.0-36.0); MEAN CELL VOLUME 78.6 fl (80-96); MEAN PLT VOLUME 8.3 fl (7.5-11.1); MONO % 7.8 % (3.8-10.2); NEUT % 51.9 % (42.8-82.8); PLATELET COUNT 210 K/MM3 (134-434); RBC 5.38 M/mm3 (3.60-5.2); RDW 16.5 % (11.6-15.6)
[2019-02-16 12:24] LABS: ALBUMIN 3.9 g/dl (3.4-5.0); BILIRUBIN,TOTAL 0.6 mg/dL (0.2-1); BLOOD UREA NITROGEN 15.7 mg/dL (7-18); CALCIUM 9.7 mg/dL (8.5-10.1); CREATININE 0.8 mg/dL (0.55-1.3); MAGNESIUM 2.2 mg/dL (1.8-2.4); POTASSIUM 3.9 mmol/L (3.5-5.1); TOT PROT 6.9 g/dl (6.4-8.2)
[2019-02-16 16:02] VITALS: BP 126/66; PULSE 58; TEMP 98.3
== END 2019-02-16 15:15 | disposition home or self-care (01) ==
LOC: JONCCHEMO 05:25 → J7W 13:36 → JONCCHEMO 15:15
PROVIDERS: ATTEND Internal Medicine Hematology & Oncology
DX: Z51.11 Encounter for antineoplastic chemotherapy (principal); C50.011 Malignant neoplasm of nipple and areola, right female breast
CPT/HCPCS: 36415; 80053; 83735; 85025; 96413; J9355

== ENCOUNTER → 2020-05-07 | Day surgery (SDC) | payer OTHER, BC ==
--- OUTSIDE RECORDS SUMMARY | 2020-05-07 06:54 | XMS ---
:1945 Author Organization [facility] Support Name Relationship Address Phone RE, RETIRED Unavailable Unavailable Unavailable KARLI MARIN SON [address] [place] [address] RE Unavailable Unavailable Unavailable PARTH MARIN SON [address] [place] [address] Re-disclosure Warning The records that you are about to access may contain information from federally- assisted alcohol or drug abuse programs. If such information is present, then the following federally mandated warning applies: This information has been disclosed to you from records protected by federal confidentiality rules (42 CFR part 2). The federal rules prohibit you from making any further disclosure of this information unless further disclosure is expressly permitted by the written consent of the person to whom it pertains or as otherwise permitted by 42 CFR part 2. A general authorization for the release of medical or other information is NOT sufficient for this purpose. The Federal rules restrict any use of the information to criminally investigate or prosecute any alcohol or drug abuse patient.The records that you are about to access may contain highly sensitive health information, the redisclosure of which is protected by Article 27-F of the [facility] Public Health law. If you continue you may haveaccess to information: Regarding HIV / AIDS; Provided by facilities licensed or operated by the [facility] Office of Mental Health; or Provided by the [facility] Office for People With Developmental Disabilities. If such information is present, then the following [facility] mandated warning applies: This information has been disclosed to you from confidential records which are protected by state law. State law prohibits you from making any further disclosure of this information without the specific written consent of the person to whom it pertains, or as otherwise permitted by law. Any unauthorized further disclosure in violation of state law may result in a fine or correction sentence or both. A general authorization for the release of medical or other information is NOT sufficient authorization for further disclosure. Insurance Providers Payer name Policy type Policy ID Covered Covered libertarian's Policy P jaida / Coverage libertarian ID relationship to [employer] type [employer] PPO [id number] SP [id number] MEDICARE [id number] SP [id number] BC PPO [id number] SP [id number] MEDICARE [id number] SP [id number] D BC PPO [id number] SP [id number] MEDICARE [id number] SP [id number] MEDICARE [id number] SP [id number] MEDICARE [id number] SP [id number] MEDICARE [id number] SP [id number] D BC PPO [id number] SP [id number] [id number] [id number] MEDICARE [id number] PART B DOWNSTA
[2020-05-07 16:56] LABS: BASO % 0.4 % (0-2.0); EOS % 1.1 % (0-4.5); HEMATOCRIT 44.4 % (32.4-45.2); HEMOGLOBIN 14.5 GM/dL (10.7-15.3); LYMPH % 39.5 % (8-40); MCH 28.1 pg (25.7-33.7); MCHC 32.7 g/dl (32.0-36.0); MEAN PLT VOLUME 9.1 fl (7.5-11.1); MONO % 7.8 % (3.8-10.2); NEUT % 51.2 % (42.8-82.8); PLATELET COUNT 237 K/MM3 (134-434); RBC 5.16 M/mm3 (3.60-5.2); RDW 14.6 % (11.6-15.6); WHITE BLOOD COUNT 5.3 K/mm3 (4.0-10.0)
[2020-05-07 17:10] LABS: POTASSIUM 4.5 mmol/L (3.5-5.1)
[2020-05-07 17:12] LABS: CALCIUM 9.3 mg/dL (8.5-10.1)
[2020-05-07 17:13] LABS: ALBUMIN 3.9 g/dl (3.4-5.0); BLOOD UREA NITROGEN 19.8 mg/dL (7-18); MAGNESIUM 2.4 mg/dL (1.8-2.4)
[2020-05-07 17:16] LABS: CREATININE 0.8 mg/dL (0.55-1.3)
[2020-05-07 17:17] LABS: BILIRUBIN,TOTAL 0.7 mg/dL (0.2-1)
== END | disposition home or self-care (01) ==
LOC: JONCCHEMO 06:51
PROVIDERS: ATTEND Internal Medicine Hematology & Oncology
DX: Z53.8 Procedure and treatment not carried out for other reasons (principal)
CPT/HCPCS: 36415; 80053; 83735; 85025; 96365

== ENCOUNTER 2020-08-06 07:44 | Day surgery (SDC) | payer OTHER, BC ==
[2020-08-06] MEDS ORDERED: DENOSUMAB 60 MG/ML DISP.SYRIN SQ ONE (10:00)
[2020-08-06 13:02] LABS: BASO % 0.4 % (0-2.0); EOS % 0.9 % (0-4.5); HEMATOCRIT 45.6 % (32.4-45.2); HEMOGLOBIN 15.3 GM/dL (10.7-15.3); LYMPH % 31.4 % (8-40); MCH 28.7 pg (25.7-33.7); MCHC 33.5 g/dl (32.0-36.0); MEAN CELL VOLUME 85.8 fl (80-96); MEAN PLT VOLUME 8.7 fl (7.5-11.1); MONO % 6.8 % (3.8-10.2); NEUT % 60.5 % (42.8-82.8); PLATELET COUNT 247 K/MM3 (134-434); RBC 5.31 M/mm3 (3.60-5.2); WHITE BLOOD COUNT 5.4 K/mm3 (4.0-10.0)
[2020-08-06 13:31] LABS: CALCIUM 9.6 mg/dL (8.5-10.1)
[2020-08-06 13:32] LABS: ALBUMIN 4.2 g/dl (3.4-5.0); BLOOD UREA NITROGEN 25.6 mg/dL (7-18)
[2020-08-06 13:33] LABS: IRON SERUM 84 ug/dL (50-175)
[2020-08-06 13:34] LABS: TOTAL IRON BINDING CAPACITY 359 ug/dL (250-450)
[2020-08-06 13:35] LABS: CREATININE 0.8 mg/dL (0.55-1.3)
[2020-08-06 13:37] LABS: TOT PROT 7.2 g/dl (6.4-8.2)
[2020-08-06 15:13] LABS: PH,URINE 5.5 (5.0-8.0); URINE APPEARANCE CLEAR; URINE BILIRUBIN NEGATIVE (NEGATIVE); URINE COLOR YELLOW; URINE GLUCOSE (UA) NEGATIVE (NEGATIVE); URINE KETONE NEGATIVE (NEGATIVE); URINE LEUK ESTERASE NEGATIVE (NEGATIVE); URINE NITRITE NEGATIVE (NEGATIVE); URINE PROTEIN NEGATIVE (NEGATIVE); URINE UROBILINOGEN 0.2 mg/dL (0.2-1.0)
[2020-08-06 16:35] VITALS: BP 140/69; PULSE 62; TEMP 97.9
== END 2020-08-06 14:30 | disposition home or self-care (01) ==
LOC: JONCCHEMO 07:44
PROVIDERS: ATTEND Internal Medicine Hematology & Oncology
PROC: 3E013GC Introduction of Other Therapeutic Substance into Subcutaneous Tissue, Percutaneous Approach (ICD-10-PCS; principal; 2020-08-06)
DX: C50.111 Malignant neoplasm of central portion of right female breast (principal); Z17.0 Estrogen receptor positive status [ER+]; Z76.89 Persons encountering health services in other specified circumstances
CPT/HCPCS: 36415; 80053; 81003; 82306; 82607; 82728; 82747; 83540; 83550; 85014; 85025; 87086; 96372; J0897

== ENCOUNTER 2021-02-12 07:12 | Day surgery (SDC) | payer OTHER, BC ==
[2021-02-12] MEDS ORDERED: DENOSUMAB 60 MG/ML DISP.SYRIN SQ ONE (10:00)
[2021-02-12 17:50] VITALS: BP 145/62; PULSE 56; TEMP 98.3
== END 2021-02-12 14:10 | disposition home or self-care (01) ==
LOC: JONCCHEMO 07:12
PROVIDERS: ATTEND Internal Medicine Hematology & Oncology
PROC: 3E013GC Introduction of Other Therapeutic Substance into Subcutaneous Tissue, Percutaneous Approach (ICD-10-PCS; principal; 2021-02-12)
DX: C50.111 Malignant neoplasm of central portion of right female breast (principal); Z17.0 Estrogen receptor positive status [ER+]; Z76.89 Persons encountering health services in other specified circumstances
CPT/HCPCS: 96372; J0897

== ENCOUNTER 2021-09-03 08:53 | Day surgery (SDC) | payer OTHER, BC ==
[2021-09-03] MEDS ORDERED: DENOSUMAB 60 MG/ML DISP.SYRIN SQ ONE (10:00)
[2021-09-03 13:50] LABS: BASO % 0.5 % (0-2.0); EOS % 0.9 % (0-4.5); HEMATOCRIT 44.5 % (32.4-45.2); HEMOGLOBIN 14.6 GM/dL (10.7-15.3); LYMPH % 39.8 % (8-40); MCH 28.4 pg (25.7-33.7); MCHC 32.8 g/dl (32.0-36.0); MEAN CELL VOLUME 86.8 fl (80-96); MEAN PLT VOLUME 8.9 fl (7.5-11.1); MONO % 10.1 % (3.8-10.2); NEUT % 48.7 % (42.8-82.8); PLATELET COUNT 198 10^3/uL (134-434); RBC 5.13 M/mm3 (3.60-5.2); RDW 14.3 % (11.6-15.6); WHITE BLOOD COUNT 4.1 K/mm3 (4.0-10.0)
[2021-09-03 14:07] LABS: ALBUMIN 4.2 g/dl (3.4-5.0); BLOOD UREA NITROGEN 19.8 mg/dL (7-18); CALCIUM 10.2 mg/dL (8.5-10.1)
[2021-09-03 14:11] LABS: CREATININE 0.8 mg/dL (0.55-1.3)
[2021-09-03 14:12] LABS: BILIRUBIN,TOTAL 0.8 mg/dL (0.2-1); TOT PROT 7.3 g/dl (6.4-8.2)
[2021-09-03 14:41] LABS: ERYTHROCYTE SEDIMENTATION RATE 6 mm/hr (0-30)
[2021-09-03 16:58] VITALS: BP 127/61; PULSE 58; TEMP 98.2
[2021-09-04 18:07] LABS: FREE KAPPA,SERUM 18.7 mg/L (3.3-19.4)
== END 2021-09-03 14:00 | disposition home or self-care (01) ==
LOC: JONCCHEMO 08:53
PROVIDERS: ATTEND Internal Medicine Hematology & Oncology
PROC: 3E013GC Introduction of Other Therapeutic Substance into Subcutaneous Tissue, Percutaneous Approach (ICD-10-PCS; principal; 2021-09-03)
DX: C50.111 Malignant neoplasm of central portion of right female breast (principal); Z76.89 Persons encountering health services in other specified circumstances
CPT/HCPCS: 36415; 80053; 82306; 83883; 85025; 85651; 86140; 86300; 96372; J0897

== ENCOUNTER 2022-02-18 06:41 | Day surgery (SDC) | payer OTHER, BC ==
[2022-02-18] MEDS ORDERED: DENOSUMAB 60 MG/ML DISP.SYRIN SQ ONE (10:00)
[2022-02-18 14:07] LABS: BASO % 0.4 % (0-2.0); EOS % 0.7 % (0-4.5); HEMATOCRIT 43.7 % (32.4-45.2); HEMOGLOBIN 14.8 GM/dL (10.7-15.3); LYMPH % 34.6 % (8-40); MCH 28.2 pg (25.7-33.7); MCHC 33.7 g/dl (32.0-36.0); MEAN CELL VOLUME 83.7 fl (80-96); MEAN PLT VOLUME 8.7 fl (7.5-11.1); MONO % 7.1 % (3.8-10.2); NEUT % 57.2 % (42.8-82.8); PLATELET COUNT 191 10^3/uL (134-434); RBC 5.23 M/mm3 (3.60-5.2); RDW 15.3 % (11.6-15.6); WHITE BLOOD COUNT 5.1 K/mm3 (4.0-10.0)
[2022-02-18 14:37] LABS: CALCIUM 9.7 mg/dL (8.5-10.1)
[2022-02-18 14:38] LABS: ALBUMIN 4.2 g/dl (3.4-5.0)
[2022-02-18 14:41] LABS: CREATININE 0.8 mg/dL (0.55-1.3)
[2022-02-18 14:42] LABS: BILIRUBIN,TOTAL 0.8 mg/dL (0.2-1); TOT PROT 7.4 g/dl (6.4-8.2)
[2022-02-18 14:43] LABS: BLOOD UREA NITROGEN 21.4 mg/dL (7-18)
[2022-02-18 17:30] VITALS: BP 147/63; PULSE 63; RESP 16; TEMP 98.3
== END 2022-02-18 16:00 | disposition home or self-care (01) ==
LOC: JONCCHEMO 06:41
PROVIDERS: ATTEND Internal Medicine Hematology & Oncology
PROC: 3E013GC Introduction of Other Therapeutic Substance into Subcutaneous Tissue, Percutaneous Approach (ICD-10-PCS; principal; 2022-02-18)
DX: C50.111 Malignant neoplasm of central portion of right female breast (principal); Z76.89 Persons encountering health services in other specified circumstances
CPT/HCPCS: 36415; 80053; 85025; 85651; 86140; 86300; 96372; J0897

== ENCOUNTER 2022-03-25 04:30 | Day surgery (SDC) | payer OTHER, BC ==
[2022-03-25 07:13] VITALS: BMI 30.2
[2022-03-25 08:25] VITALS: TEMP 97.1
[2022-03-25 08:59] VITALS: BP 126/65; PULSE 64; RESP 14
== END 2022-03-25 09:55 | disposition home or self-care (01) ==
LOC: JASU-ENDO 04:30
PROVIDERS: ATTEND Internal Medicine Gastroenterology
PROC: 0DJD8ZZ Inspection of Lower Intestinal Tract, Via Natural or Artificial Opening Endoscopic (ICD-10-PCS; principal; 2022-03-25 08:00)
DX: Z12.11 Encounter for screening for malignant neoplasm of colon (principal); K57.30 Diverticulosis of large intestine without perforation or abscess without bleeding; Z86.010 Personal history of colon polyps

== ENCOUNTER 2022-08-30 16:00 | Day surgery (SDC) | payer OTHER, BC ==
[~2022-08-30 16:00] MED LIST changes: -ACETAMINOPHEN 325 MG TABLET (FP) PO ONE; +DENOSUMAB 60 MG/ML DISP.SYRIN SQ ONE; -SODIUM CHLORIDE IVPB ONE; -TRASTUZUMAB IVPB ONE
[2022-08-30 18:51] VITALS: BP 157/64; PULSE 63; RESP 20; TEMP 98
== END 2022-08-30 16:44 | disposition home or self-care (01) ==
LOC: JONCNONCHE 16:00
PROVIDERS: ATTEND Internal Medicine Hematology & Oncology
PROC: 3E013GC Introduction of Other Therapeutic Substance into Subcutaneous Tissue, Percutaneous Approach (ICD-10-PCS; principal; 2022-08-30)
DX: C50.111 Malignant neoplasm of central portion of right female breast (principal); M81.0 Age-related osteoporosis without current pathological fracture
CPT/HCPCS: 96372; J0897

== ENCOUNTER 2023-02-28 14:12 | Day surgery (SDC) | payer OTHER, BC ==
[2023-02-28 15:06] LABS: BASO % 0.5 % (0-2.0); EOS % 0.4 % (0-4.5); HEMATOCRIT 45.8 % (32.4-45.2); HEMOGLOBIN 15.3 GM/dL (10.7-15.3); LYMPH % 31.7 % (8-40); MCHC 33.5 g/dl (32.0-36.0); MEAN CELL VOLUME 83.7 fl (80-96); MEAN PLT VOLUME 8.3 fl (7.5-11.1); MONO % 8.2 % (3.8-10.2); NEUT % 59.2 % (42.8-82.8); PLATELET COUNT 226 10^3/uL (134-434); RBC 5.47 M/mm3 (3.60-5.2); RDW 14.5 % (11.6-15.6); WHITE BLOOD COUNT 6.6 K/mm3 (4.0-10.0)
[2023-02-28 15:28] LABS: POTASSIUM 4.2 mmol/L (3.5-5.1)
[2023-02-28 15:30] LABS: ALBUMIN 4.5 g/dl (3.4-5.0); CALCIUM 9.5 mg/dL (8.5-10.1); MAGNESIUM 2.2 mg/dL (1.8-2.4)
[2023-02-28 15:33] LABS: BILIRUBIN,DIRECT 0.2 mg/dL (0.0-0.2); CREATININE 0.8 mg/dL (0.55-1.3)
[2023-02-28 15:34] LABS: PHOSPHOROUS 3.2 mg/dL (2.5-4.9)
[2023-02-28 15:35] LABS: BILIRUBIN,TOTAL 0.5 mg/dL (0.2-1); TOT PROT 7.5 g/dl (6.4-8.2)
[2023-02-28 17:46] VITALS: BP 133/58; PULSE 62; RESP 20; TEMP 98.5
== END 2023-02-28 16:15 | disposition home or self-care (01) ==
LOC: JONCCHEMO 14:12 → J7W 14:13 → JONCCHEMO 16:15
PROVIDERS: ATTEND Internal Medicine Hematology & Oncology
PROC: 3E013GC Introduction of Other Therapeutic Substance into Subcutaneous Tissue, Percutaneous Approach (ICD-10-PCS; principal; 2023-02-28)
DX: M81.0 Age-related osteoporosis without current pathological fracture (principal)
CPT/HCPCS: 36415; 80048; 80076; 83735; 84100; 85025; 96372; J0897

== ENCOUNTER 2023-08-29 13:25 | Day surgery (SDC) | payer OTHER, BC ==
[2023-08-29 13:47] LABS: BASO % 0.5 % (0-2.0); EOS % 0.5 % (0-4.5); HEMATOCRIT 44.7 % (32.4-45.2); HEMOGLOBIN 14.9 GM/dL (10.7-15.3); LYMPH % 47.6 % (8-40); MCH 28.8 pg (25.7-33.7); MCHC 33.3 g/dl (32.0-36.0); MEAN CELL VOLUME 86.4 fl (80-96); MEAN PLT VOLUME 8.1 fl (7.5-11.1); NEUT % 43.4 % (42.8-82.8); PLATELET COUNT 181 10^3/uL (134-434); RBC 5.17 M/mm3 (3.60-5.2); RDW 15.5 % (11.6-15.6); WHITE BLOOD COUNT 4.2 K/mm3 (4.0-10.0)
[2023-08-29 14:05] LABS: POTASSIUM 3.9 mmol/L (3.5-5.1)
[2023-08-29 14:07] LABS: ALBUMIN 4.2 g/dl (3.4-5.0); CALCIUM 9.9 mg/dL (8.5-10.1)
[2023-08-29 14:10] LABS: BILIRUBIN,DIRECT 0.2 mg/dL (0.0-0.2); CREATININE 0.9 mg/dL (0.55-1.3)
[2023-08-29 14:11] LABS: PHOSPHOROUS 3.7 mg/dL (2.5-4.9)
[2023-08-29 14:12] LABS: BILIRUBIN,TOTAL 0.7 mg/dL (0.2-1); TOT PROT 7.1 g/dl (6.4-8.2)
[2023-08-29] MEDS: DENOSUMAB 60 MG/ML DISP.SYRIN SQ ONE (14:30)
[2023-08-29 15:04] VITALS: BP 129/68; PULSE 78; RESP 18; TEMP 98.4
== END 2023-08-29 14:45 | disposition home or self-care (01) ==
LOC: JONCNONCHE 13:25 → J7W 13:26 → JONCNONCHE 14:45
PROVIDERS: ATTEND Internal Medicine Hematology & Oncology
PROC: 3E013GC Introduction of Other Therapeutic Substance into Subcutaneous Tissue, Percutaneous Approach (ICD-10-PCS; principal; 2023-08-29)
DX: C50.011 Malignant neoplasm of nipple and areola, right female breast (principal); Z17.0 Estrogen receptor positive status [ER+]
CPT/HCPCS: 36415; 80048; 80076; 83735; 84100; 85025; 96372; J0897

== ENCOUNTER 2024-03-20 12:30 | Day surgery (SDC) | payer OTHER, BC ==
[2024-03-20] MEDS: DENOSUMAB 60 MG/ML DISP.SYRIN SQ ONE (13:07)
[2024-03-20 15:23] VITALS: BP 130/65; PULSE 59; RESP 20; TEMP 98.3
== END 2024-03-20 13:30 | disposition home or self-care (01) ==
LOC: JONCCHEMO 12:30 → J7W 12:30 → JONCCHEMO 13:30
PROVIDERS: ATTEND Internal Medicine Hematology & Oncology
PROC: 3E013GC Introduction of Other Therapeutic Substance into Subcutaneous Tissue, Percutaneous Approach (ICD-10-PCS; principal; 2024-03-20)
DX: M81.0 Age-related osteoporosis without current pathological fracture (principal)
CPT/HCPCS: 96372; J0897